=== PATIENT | male | born 1950 | race Hispanic/Latino ===

== ENCOUNTER → 2022-08-22 | Outpatient (CLI) | payer OTHER ==
[~2022-08-22] MED LIST: IOHEXOL 350 MG/ML 100ML INFUS..BTL IV ONE
== END | disposition home or self-care (01) ==
LOC: RAH 10:01
PROVIDERS: ATTEND Student in an Organized Health Care Education/Training Program
DX: K44.9 Diaphragmatic hernia without obstruction or gangrene (principal); R07.9 Chest pain, unspecified; J84.10 Pulmonary fibrosis, unspecified; M47.815 Spondylosis without myelopathy or radiculopathy, thoracolumbar region; I25.10 Atherosclerotic heart disease of native coronary artery without angina pectoris
CPT/HCPCS: 75574; Q9967

== ENCOUNTER 2022-11-12 05:56 | Day surgery (SDC) | payer OTHER ==
[2022-11-08 09:07] VITALS: BP 155/76; PULSE 74; RESP 20
[2022-11-08 09:22] LABS: BASOPHILS # (AUTO) 0.03 K/uL (0.00-0.20); BASOPHILS % (AUTO) 0.4 % (0.0-5.0); EOSINOPHILS # (AUTO) 0.21 K/uL (0.00-0.70); HEMATOCRIT 36.3 % (42-54); IMMATURE GRANULOCYTE ABSOLUTE 0.02 K/uL (0-1); LYMPHOCYTES # (AUTO) 2.6 K/uL (1.0-4.8); LYMPHOCYTES % (AUTO) 37.1 % (21.0-51.0); MEAN CORPUSCULAR HEMOGLOBIN 28.6 pg (27.0-33.0); MEAN CORPUSCULAR HGB CONC 32.5 g/dL (32.0-36.0); MEAN CORPUSCULAR VOLUME 88.1 fL (79-99); MONOCYTES # (AUTO) 0.8 K/uL (0.1-1.0); NEUTROPHILS # (AUTO) 3.4 K/uL (1.8-7.7); NEUTROPHILS % (AUTO) 48.2 % (40.0-77.0); PLATELET COUNT (AUTO) 215 K/uL (130-400); RED BLOOD CELL COUNT(AUTO) 4.12 MIL/uL (4.50-6.20); RED CELL DISTRIBUTION WIDTH 13.2 % (11.0-15.5)
[2022-11-08 09:29] LABS: APPEARANCE,URINE CLEAR (CLEAR); BILIRUBIN,URINE NEGATIVE (NEGATIVE); COLOR,URINE LIGHT-YELLOW (YELLOW); GLUCOSE, URINE (UA) 150 mg/dL (NEGATIVE); KETONES,URINE NEGATIVE (NEGATIVE); LEUKOCYTE ESTERASE ,URINE NEGATIVE Leu/uL (NEGATIVE); NITRATE,URINE NEGATIVE (NEGATIVE); OCCULT BLOOD,URINE SMALL (NEGATIVE); PROTEIN,URINE 600 mg/dL (NEGATIVE); UROBILINOGEN,URINE 0.2 mg/dL (0.2-1.0)
[2022-11-08 09:32] LABS: POTASSIUM 4.3 mmol/L (3.5-5.1)
[2022-11-08 09:40] LABS: CREATININE 14.3 mg/dL (0.5-1.5)
[2022-11-08 09:42] LABS: ADD UA MICROSCOPIC YES; INR 0.93 (0.85-1.15); PROTHROMBIN TIME 10.5 SEC (9.6-11.6)
[2022-11-08 09:43] LABS: PARTIAL THROMBOPLASTIN TIME 30.6 SEC (26.3-35.5)
[2022-11-08 09:44] LABS: B-TYPE NATRIURETIC PEPTIDE 590 pg/mL (0-100)
[2022-11-08 09:46] LABS: MUCUS,URINE RARE LPF (None Seen); SQUAMOUS EPITHELIAL CELL,UR RARE /HPF (0-2); WBC,URINE 0-1 /HPF (0-1)
[~2022-11-12] VITALS: Ht 160 cm; Wt 75.9 kg
[2022-11-12] VITALS (11 sets, daily range): BP systolic 122–148; BP diastolic 55–73; PULSE 54–72; RESP 11–15
[~2022-11-12 05:56] MED LIST changes: +ATOR10 PO; +BENZ-226 PO; +CALC0.253 PO; +CARV25TA PO; +CHOL100046 PO; +CINA30 PO; +FURO80TA3 PO; +INSLAN SQ; -IOHEXOL 350 MG/ML 100ML INFUS..BTL IV ONE; +LINA145C PO; +LOSA25TA41 PO; +NIFE-39 PO
[2022-11-12] MEDS ORDERED: IOPAMIDOL-370 100 ML VIAL IV ONE (05:57)
[2022-11-12] MEDS ORDERED: DEXTROSE 50%-WATER 50 ML DISP.SYRIN IV ONE (06:20)
[2022-11-12] MEDS ORDERED: 0.9%NACL 1000ML 1,000 ML IV ONE (06:20)
[2022-11-12] MEDS ORDERED: NITROGLYCERIN 50MG VIAL ONE (07:09)
[2022-11-12] MEDS ORDERED: LIDOCAINE HCL 400MG/20ML VIAL ONE (07:09)
[2022-11-12] MEDS ORDERED: VERAPAMIL HCL 2.5 MG/ML VIAL ONE (07:09)
[2022-11-12] MEDS ORDERED: HEPARIN 10,000 UNIT/10ML (1,000 UNIT/ML) VIAL ONE (07:09)
[2022-11-12] MEDS ORDERED: MIDAZOLAM HCL 1 MG/ML 2ML VIAL ONE (07:34)
[2022-11-12] MEDS ORDERED: FENTANYL CITRATE PF 50 MCG/1 ML 2ML VIAL ONE (07:34)
[2022-11-12] MEDS ORDERED: DEXTROSE 50%-WATER 50 ML DISP.SYRIN IV PRN (09:00)
[2022-11-12] MEDS ORDERED: GLUCAGON 1MG KIT 1 MG ML IM PRN (09:00)
[2022-11-12] MEDS ORDERED: CLOPIDOGREL 300MG TAB ONE (15:02)
[2022-11-12] MEDS ORDERED: ASPIRIN 81MG CHEW TAB ONE (15:03)
== END 2022-11-12 15:15 | disposition home or self-care (01) ==
LOC: DAH 05:56
PROVIDERS: ATTEND Student in an Organized Health Care Education/Training Program
DX: I25.112 Atherosclerotic heart disease of native coronary artery with refractory angina pectoris (principal); E11.22 Type 2 diabetes mellitus with diabetic chronic kidney disease; I12.0 Hypertensive chronic kidney disease with stage 5 chronic kidney disease or end stage renal disease; N18.6 End stage renal disease; E78.5 Hyperlipidemia, unspecified; Z99.2 Dependence on renal dialysis; Z79.01 Long term (current) use of anticoagulants; Z79.899 Other long term (current) drug therapy
CPT/HCPCS: 80048; 83880; 85025; 85610; 85730; 81001; 36415; 71045; 93005; 93458; 82948 ×3; C1769 ×2; C1894 ×3; C1760; Q9967; J3010; J3490 ×3; J7030; J7070; J1644 ×2; J2250; A4215; A4222; A4221; A4663; A4216; A4606; A4223 ×3; 99156; 99157

== ENCOUNTER 2024-01-02 11:45 | Emergency (ER) | payer OTHER, MEDICARE ==
[~2024-01-02] VITALS: Ht 160 cm; Wt 72.6 kg
[~2024-01-02 11:45] MED LIST changes: +AEC81 PO; -ATOR10 PO; -BENZ-226 PO; -CALC0.253 PO; -CARV25TA PO; -CINA30 PO; -FURO80TA3 PO; -INSLAN SQ; -LINA145C PO; -LOSA25TA41 PO; -NIFE-39 PO
[2024-01-02 12:30] LABS: BASOPHILS # (AUTO) 0.02 K/uL (0.00-0.20); BASOPHILS % (AUTO) 0.2 % (0.0-5.0); EOSINOPHILS # (AUTO) 0.13 K/uL (0.00-0.70); EOSINOPHILS % (AUTO) 1.3 % (0.0-8.0); IMMATURE GRANULOCYTE ABSOLUTE 0.09 K/uL (0-1); LYMPHOCYTES # (AUTO) 0.9 K/uL (1.0-4.8); LYMPHOCYTES % (AUTO) 9.4 % (21.0-51.0); MEAN CORPUSCULAR HEMOGLOBIN 29.5 pg (27.0-33.0); MEAN CORPUSCULAR HGB CONC 32.3 g/dL (32.0-36.0); MEAN CORPUSCULAR VOLUME 91.2 fL (79-99); MONOCYTES # (AUTO) 0.7 K/uL (0.1-1.0); MONOCYTES % (AUTO) 7.2 % (3.0-13.0); PLATELET COUNT (AUTO) 387 K/uL (130-400); RED BLOOD CELL COUNT(AUTO) 2.85 MIL/uL (4.50-6.20); RED CELL DISTRIBUTION WIDTH 13.2 % (11.0-15.5); WHITE BLOOD COUNT (AUTO) 9.8 K/uL (4.8-10.8)
[2024-01-02 13:11] LABS: POTASSIUM 4.1 mmol/L (3.5-5.1)
[2024-01-02 13:14] LABS: CREATININE 11.5 mg/dL (0.5-1.3)
[2024-01-02] MEDS ORDERED: GABA-529 PO (15:45)
[2024-01-02 15:54] VITALS: BP 162/96; PULSE 99; RESP 18; TEMP 98.6; O2SAT 98
== END 2024-01-02 15:58 | disposition home or self-care (01) ==
LOC: EDH 11:45
DX: L76.34 Postprocedural seroma of skin and subcutaneous tissue following other procedure (principal); E11.9 Type 2 diabetes mellitus without complications; E78.00 Pure hypercholesterolemia, unspecified; I10 Essential (primary) hypertension; Z79.82 Long term (current) use of aspirin; Z95.1 Presence of aortocoronary bypass graft
CPT/HCPCS: 36415; 71045; 76604; 80048; 85025; 93005

== ENCOUNTER 2024-03-26 10:16 | Emergency (ER) | payer OTHER, MEDICARE ==
[~2024-03-26] VITALS: Ht 160 cm; Wt 60.8 kg
[~2024-03-26 10:16] MED LIST changes: -AEC81 PO; +ASPI-1443 PO; +ATOR40TA69 PO; +BENZ150C8 PO; -CHOL100046 PO; +CINA30TA5 PO; +CLOP-31 PO; +GABA100C PO; +HYDR-3830 PO; +INSU3INS3 SQ; +LINA145C PO; +MIDO10TA3 PO; +SEVE800T7 PO
--- NOTE | 2024-03-26 10:39 | ERN ---
General Chief Complaint: Altered Mental Status Stated Complaint: AMS Time Seen by MD: 10:18 History of Present Illness Initial Comments 73-year-old male came in by EMS from [facility] for altered mentation. According to the daughter the patient normally is much more verbal. This morning she found him and he is less verbal and he appears confused and lethargic than usual. He is currently being treated with a PICC line for a sternal infection after it CABG. He was a diabetic, hypertensive. End-stage renal disease on peritoneal dialysis daily. He has no obvious cranial nerve deficits, he is moving both arms and legs. Takes a daily aspirin. Family denies fevers, vomiting, diarrhea. Allergies: Coded Allergies: acetaminophen (Unverified Allergy, Unknown, 11/08/22) Home Meds Reported Medications Insulin Glargine,Hum.rec.anlog (Lantus Solostar) 100 Unit/Ml (3 Ml) Insuln.pen, 30 UNIT SQ DAILY for 30 Days, #15 ML 0 Refills 03/16/24 Hydroxyzine HCl (Hydroxyzine HCl) 10 Mg Tablet, 10 MG PO AD, TAB 03/16/24 Benzonatate (Benzonatate) 150 Mg Capsule, 1 CAP PO BID for 10 Days, #30 CAP 0 Refills 03/16/24 Midodrine HCl (Midodrine HCl) 10 Mg Tablet, 1 TAB PO TID for 30 Days, #90 TAB 0 Refills 24 Atorvastatin Calcium (LIPITOR) 40 Mg Tablet, 1 TAB PO DAILY for 30 Days, #30 TAB 0 Refills 24 Gabapentin (Neurontin) 100 Mg Capsule, 1 CAP PO TID for 30 Days, #90 CAP 0 Refills 24 Clopidogrel Bisulfate (Plavix) 75 Mg Tablet, 1 TAB PO DAILY for 30 Days, #30 TAB 0 Refills 24 Cinacalcet HCl (Cinacalcet HCl) 30 Mg Tablet, 30 MG PO DAILY, TAB 24 Linaclotide (Linzess) 145 Mcg Capsule, 72 MG PO DAILY for 30 Days, #30 CAP 0 Refills 03/16/24 Aspirin (Aspirin EC) 81 Mg Tablet.dr, 1 TAB PO DAILY for 30 Days, #30 TAB 0 Refills 24 Sevelamer Carbonate (Renvela) 800 Mg Tablet, 800 MG PO TID, TAB 03/16/24 Past Medical History Past Medical History: Anemia, CAD, Diabetes-Type II, High Cholesterol, Hypertension, Other Medical History Other: ESRD Past Surgical History: CABG, Other Surgical History Other: PERITONEAL DIALYSIS CATHETER, HERNIA ROS Dictation Unable to obtain due to the patient's altered mentation. Physical Exam Physical Exam Dictation VITAL SIGNS: Reviewed. GENERAL APPEARANCE: Alert but less oriented and lethargic, no acute distress HEAD AND FACE: Non-traumatic. EYES: PERRL, pink conjunctivas, eyelid no trauma, anterior chamber clear. EARS: Pinnas intact and no signs of trauma or erythema. Ear canals clear and no discharge. TMs no erythema. NOSE: No discharge, no bleeding. OROPHARYNX: Mouth normal, teeth no caries, tongue pink. Pharynx clear, no erythema. Tonsils no exudates, no abscesses noted. Mucous membrane moist. NECK: Supple, non-tender, no thyromegaly, no masses, no JVD, no bruits. BREAST: Deferred. CHEST: Midline CABG scar with the wound covering. No signs of infection or purulence. LUNGS: Clear, well-ventilated, symmetric, no rales, no wheezing, no rhonchi, no stridor, good breath sounds bilaterally. HEART: Regular rate, regular rhythm, no murmur, no gallops. VASCULAR: No peripheral edema. ABDOMEN: Soft, positive bowel sounds, nondistended, no guarding, nontender, no rebound, no masses no hepatomegaly, no splenomegaly, no Castro's sign, no hernias. Peritoneal dialysis in place. RECTAL: Deferred. GENITAL: Deferred. NEUROLOGICAL: Not speaking but following simple commands, cranial nerves appear intact. Moving both limbs. MUSCULOSKELETAL: Neck nontender, full range of motion, back nontender, full range of motion. EXTREMITIES: Nontender, full range of motion. SKIN: Color pink, dry, no turgor, no rash, no lacerations, no abrasions, no contusions. LYMPHATICS: Deferred. Results Laboratory and Microbiology Lab and Micro Result Laboratory Tests Test 03/26/24 10:40 White Blood Count 9.8 K/uL (4.8-10.8) Red Blood Count 3.06 MIL/uL (4.50-6.20) L Hemoglobin 9.2 g/dL (14.0-18.0) L Hematocrit 29.3 % (42-54) L Mean Corpuscular Volume 95.8 fL (79-99) Mean Corpuscular Hemoglobin 30.1 pg (27.0-33.0) Mean Corpuscular Hemoglobin Concent 31.4 g/dL (32.0-36.0) L Red Cell Distribution Width 14.8 % (11.0-15.5) Platelet Count 331 K/uL (130-400) Mean Platelet Volume 10.5 fL (7.5-10.5) Immature Granulocyte % (Auto) 1.2 % (0-1) H Neutrophils (%) (Auto) 63.9 % (40.0-77.0) Lymphocytes (%) (Auto) 23.7 % (21.0-51.0) Monocytes (%) (Auto) 10.0 % (3.0-13.0) Eosinophils (%) (Auto) 1.0 % (0.0-8.0) Basophils (%) (Auto) 0.2 % (0.0-5.0) Neutrophils # (Auto) 6.3 K/uL (1.8-7.7) Lymphocytes # (Auto) 2.3 K/uL (1.0-4.8) Monocytes # (Auto) 1.0 K/uL (0.1-1.0) Eosinophils # (Auto) 0.10 K/uL (0.00-0.70) Basophils # (Auto) 0.02 K/uL (0.00-0.20) Absolute Immature Granulocyte (auto 0.12 K/uL (0-1) Nucleated Red Blood Cells 0.2 % (0.0-0.19) H Sodium Level 143 mmol/L (136-145) Potassium Level 3.7 mmol/L (3.5-5.1) Chloride Level 100 mmol/L (101-111) L Carbon Dioxide Level 32 mmol/L (21-32) Blood Urea Nitrogen 32 mg/dL (7-18) H Creatinine 8.1 mg/dL (0.5-1.3) *H Glomerular Filtration Rate Calc 7 mL/min (>90) Random Glucose 119 mg/dL (70-105) H Lactic Acid Level 1.9 mmol/L (0.8-2.5) Total Calcium 9.4 mg/dL (8.5-10.1) Magnesium Level 1.90 mg/dL (1.80-2.40) Total Bilirubin 0.4 mg/dL (0.2-1.0) Direct Bilirubin 0.1 mg/dL (0.0-0.3) Aspartate Amino Transf (AST/SGOT) 17 U/L (10-37) Alanine Aminotransferase (ALT/SGPT) 5 U/L (12-78) L Alkaline Phosphatase 126 U/L (50-136) Ammonia 15 umol/L (11-32) Total Creatine Kinase 42 U/L (21-232) Troponin I High Sensitivity 373.8 ng/L (4-75) *H C-Reactive Protein, Quantitative 56.50 mg/L (0.5-3.0) H B-Type Natriuretic Peptide 516 pg/mL (0-100) H Total Protein 7.1 g/dL (6.0-8.3) Albumin 2.4 g/dL (3.5-5.0) L MDM CC: Altered mentation Historian: Family due to patient's altered mentation Vital signs: Stable, remained stable in the ER. Labs show no leukocytosis no shift and no bands. Normocytic anemia hemoglobin 9.2 baseline for patient. Chemistry panel shows creatinine of 8.1 BUN of 32, baseline for patient, he does have CKD and requires dialysis. Does have an elevated troponin 373. Elevated CRP 56. BNP is mildly elevated. I suspect that the troponin is baseline for patient due to the CKD. CXR per my independent interpretation shows a small left pleural effusion unchanged. CT head without contrast unremarkable. Per my independent interpretation. While the patient was here in the ER, another family member came and reports that she was very familiar with the patient and he was at his baseline mentation currently. He is already receiving IV antibiotics at [facility] [place], I do not see any indication for an acute hospitalization at this time. We will DC back to [facility]. REASON: CP ORDERING PHYSICIAN: HILDA YOUNG DO PROCEDURE: CXR1VW - CHEST 1VW CHEST 1VW REASON: CP COMPARISON: 03/17/2024 FINDINGS: There are mild perihilar infiltrates which could be pneumonia or edema, more prominent on the right. Heart size is normal. More peripheral portions of the lungs are clear. There is a small left pleural effusion unchanged since prior exam. IMPRESSION: 1. Small left pleural effusion unchanged. 2. Perihilar infiltrates which could be pneumonia or edema. REASON: altered mentation ORDERING PHYSICIAN: HILDA YOUNG DO PROCEDURE: HEAD WO - CT HEAD/BRAIN W/O CONTRAST Exam: NONCONTRAST CT BRAIN REASON: altered mentation. COMPARISON: 01/12/2024 TECHNIQUE: Images are obtained from vertex to the skull base. The exam was performed without IV contrast. FINDINGS: There are generous ventricles and sulci. There is decreased attenuation in the deep central white matter. These findings are consistent with atrophy. There are no acute appearing focal parenchymal lesions. There is no evidence of mass, intracranial hemorrhage or acute stroke. Posterior fossa and brainstem structures appear unremarkable. There are no abnormal fluid collections. Extra cranial soft tissues appear unremarkable as well. IMPRESSION: 1. Atrophy, no acute finding. ED Course Orders Procedure Category Date Status Time Cbc With Differential LAB 03/26/24 Complete 10:18 Blood Cult MONICA 03/26/24 In Process 10:18 Ammonia LAB 03/26/24 Complete 10:26 Cardiac Panel LAB 03/26/24 Complete 10:26 Basic Metabolic Panel LAB 03/26/24 Complete 10:26 B-Type Natriuretic LAB 03/26/24 Complete Peptide 10:26 Magnesium LAB 03/26/24 Complete 10:26 Crp Quantitative LAB 03/26/24 Complete 10:26 Lactic Acid LAB 03/26/24 Complete 10:26 Hepatic Function Panel LAB 03/26/24 Complete 10:26 Chest 1vw RAD 03/26/24 Resulted 10:26 12 Lead Ekg Tracing- EKG 03/26/24 Complete Technical 10:26 Ct Head/Brain W/O CT 03/26/24 Resulted Contrast 10:26 Vital Signs Date Time Temp Pulse Resp B/P (MAP) Pulse Ox O2 Delivery O2 Flow Rate FiO2 03/26/24 10:45 97.5 99 17 101/61 100 Room Air* 0 21 03/26/24 10:18 98.4 102 16 189/130 97 Room Air DX & DISP Disposition: Discharge Departure Impression: Primary Impression: Altered mental state Additional Impressions: Anemia, ESRD on dialysis Condition: Stable Additional Instructions: There are no dangerous findings on your workup here today. The CT scan of the brain shows no acute abnormalities. The lab work shows baseline labs. There are no new major changes. Be sure to continue with dialysis. Be sure to continue with the IV antibiotics. Please follow up with your primary doctor. Return to the emergency department as needed. Referrals: BOBBI CROCKETT MD (PCP) HILDA YOUNG DO Mar 26, 2024 10:39
--- NOTE | 2024-03-26 10:49 | NUR ---
PERITONEAL DIALYSIS. PATIENT OF DR TENORIO. PATIENT IS ANURIC PER SPOUSE AT BEDSIDE.
[2024-03-26 11:08] LABS: BASOPHILS # (AUTO) 0.02 K/uL (0.00-0.20); BASOPHILS % (AUTO) 0.2 % (0.0-5.0); HEMATOCRIT 29.3 % (42-54); IMMATURE GRANULOCYTE ABSOLUTE 0.12 K/uL (0-1); LYMPHOCYTES # (AUTO) 2.3 K/uL (1.0-4.8); LYMPHOCYTES % (AUTO) 23.7 % (21.0-51.0); MEAN CORPUSCULAR HEMOGLOBIN 30.1 pg (27.0-33.0); MEAN CORPUSCULAR HGB CONC 31.4 g/dL (32.0-36.0); MEAN CORPUSCULAR VOLUME 95.8 fL (79-99); NEUTROPHILS # (AUTO) 6.3 K/uL (1.8-7.7); NEUTROPHILS % (AUTO) 63.9 % (40.0-77.0); NUCLEATED RED BLOOD CELLS 0.2 % (0.0-0.19); PLATELET COUNT (AUTO) 331 K/uL (130-400); RED BLOOD CELL COUNT(AUTO) 3.06 MIL/uL (4.50-6.20); RED CELL DISTRIBUTION WIDTH 14.8 % (11.0-15.5); WHITE BLOOD COUNT (AUTO) 9.8 K/uL (4.8-10.8)
--- NOTE | 2024-03-26 11:18 | NUR ---
PER SPOUSE AT BEDSIDE, THE ONLY NEW NEUROLOGICAL SYMPTOM IS THE PATIENT'S INABILITY TO RESPOND VERBALLY. SPOUSE STATES THE PATIENT HAS BEEN IN A "SLEEPY," STATES SINCE 03/18/2024. SPOUSE STATES THE PATIENT WENT TO SLEEP YESTERDAY AROUND 0200 0300 AND WAS REPONDING VERBALLY. AWOKE AROUND 0600 AND NO LONGER RESPONDED VERBALLY. NOTE PATIENT RESPONDS TO VOICE AND TRACKS WITH EYES. MOVES HEAD AND EYES TO VOICE.
[2024-03-26 11:26] LABS: ALBUMIN 2.4 g/dL (3.5-5.0); BILIRUBIN,DIRECT 0.1 mg/dL (0.0-0.3); BILIRUBIN,TOTAL 0.4 mg/dL (0.2-1.0); MAGNESIUM 1.9 mg/dL (1.80-2.40); POTASSIUM 3.7 mmol/L (3.5-5.1); TOTAL PROTEIN, SERUM 7.1 g/dL (6.0-8.3)
--- NOTE | 2024-03-26 11:27 | EKG ---
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
[2024-03-26 11:29] LABS: CREATININE 8.1 mg/dL (0.5-1.3)
--- NOTE | 2024-03-26 12:19 | HMCIMG ---
CHEST 1VW REASON: CP COMPARISON: 03/17/2024 FINDINGS: There are mild perihilar infiltrates which could be pneumonia or edema, more prominent on the right. Heart size is normal. More peripheral portions of the lungs are clear. There is a small left pleural effusion unchanged since prior exam. IMPRESSION: 1. Small left pleural effusion unchanged. 2. Perihilar infiltrates which could be pneumonia or edema.
--- NOTE | 2024-03-26 12:22 | HMCIMG ---
Exam: NONCONTRAST CT BRAIN REASON: altered mentation. COMPARISON: 01/12/2024 TECHNIQUE: Images are obtained from vertex to the skull base. The exam was performed without IV contrast. FINDINGS: There are generous ventricles and sulci. There is decreased attenuation in the deep central white matter. These findings are consistent with atrophy. There are no acute appearing focal parenchymal lesions. There is no evidence of mass, intracranial hemorrhage or acute stroke. Posterior fossa and brainstem structures appear unremarkable. There are no abnormal fluid collections. Extra cranial soft tissues appear unremarkable as well. IMPRESSION: 1. Atrophy, no acute finding. CT was performed with one or more following dose reduction techniques: automated exposure control, adjustment of the mA and kv according to patient's size, or use of a iterative reconstruction technique.
--- NOTE | 2024-03-26 12:43 | NUR ---
PER DAUGHTER OF PATIENT AT BEDSIDE, THE PATIENT HAS BEEN IN THIS CURRENT STATE FOR THE LAST 3-4 DAYS WITH STUPOR AND INABILITY TO "THROW AT WORDS," PER DAUGHTER. DAUGHTER STATES SHE SEES THE PATIENT AT BASELINE WITH SOME IMPROVEMENT. VERBALIZES PATIENT WAS OFFERED TO GO HOME ON HOSPICE CARE.
--- NOTE | 2024-03-26 13:09 | NUR ---
EMS NOTIFIED OF TRANSPORT TO [facility]
--- NOTE | 2024-03-26 13:19 | NUR ---
PATIENT REPORT GIVEN TO CARLOS DOHERTY WITH [facility]
[2024-03-26 14:00] VITALS: BP 100/57; PULSE 99; RESP 17; TEMP 97.5; O2SAT 99
== END 2024-03-26 14:01 | disposition short-term general hospital (02) ==
LOC: EDH 10:16
DX: R41.82 Altered mental status, unspecified (principal); I12.0 Hypertensive chronic kidney disease with stage 5 chronic kidney disease or end stage renal disease; E11.22 Type 2 diabetes mellitus with diabetic chronic kidney disease; N18.6 End stage renal disease; D63.1 Anemia in chronic kidney disease; E78.00 Pure hypercholesterolemia, unspecified; I25.10 Atherosclerotic heart disease of native coronary artery without angina pectoris; Z79.02 Long term (current) use of antithrombotics/antiplatelets; Z79.4 Long term (current) use of insulin; Z79.82 Long term (current) use of aspirin; Z79.899 Other long term (current) drug therapy; Z95.1 Presence of aortocoronary bypass graft; Z99.2 Dependence on renal dialysis
CPT/HCPCS: 36415; 70450; 71045; 80048; 80076; 82140; 82550; 83605; 83735; 83880; 84484; 85025; 86140; 87040; 93005; 99285

== ENCOUNTER 2024-05-29 05:54 | Inpatient (IN) | payer OTHER, MEDICARE ==
[~2024-05-29] VITALS: Ht 172.7 cm; Wt 65.8 kg
[2024-05-29 10:45] VITALS: BP 108/65; PULSE 97; RESP 18; TEMP 98.4
[2024-05-29 11:00] VITALS: O2SAT 98
[2024-05-29] MEDS ORDERED: FOLI1TAB85 PO (12:54)
[2024-05-29] MEDS ORDERED: BENZ200C53 PO (12:54)
[2024-05-29] MEDS ORDERED: TAMS-1 PO (12:54)
[2024-05-29] MEDS ORDERED: INSU3INS3 SQ ×2 (12:54)
[2024-05-29] MEDS ORDERED: SENN8.6T20 PO (12:54)
[2024-05-29] MEDS ORDERED: DUTA0.5C37 PO (12:54)
[2024-05-29] MEDS ORDERED: FLUD0.1T2 PO (12:54)
[2024-05-29] MEDS ORDERED: PANT20TA18 PO (12:54)
[2024-05-29] MEDS ORDERED: MIDO10TA3 PO (12:54)
[2024-05-29] MEDS ORDERED: BENZONATATE 100 MG PO SCH (14:00)
[2024-05-29] MEDS ORDERED: PHARMACY COMMUNICATION MISC SCH (14:00)
[2024-05-29] MEDS: miDODRine HCL 5 MG TABLET PO SCH (14:30)
[2024-05-29] MEDS ORDERED: VANCOMYCIN PROTOCOL PER PHARMACY IV SCH (14:30)
[2024-05-29] MEDS: ceFEPime HCL 1 GM VIAL IVPB SCH (14:38)
[2024-05-29] MEDS: GABApentin 100 MG CAPSULE PO SCH (14:38)
[2024-05-29] MEDS: HEParin 5,000 UNIT VIAL SQ SCH (14:41)
[2024-05-29] MEDS: VANCOMYCIN 1.75 GM/250 ML BAG 250 ML IV ONE (14:41)
[2024-05-29 15:39] LABS: HEMATOCRIT 30.3 % (42-54); MEAN CORPUSCULAR HEMOGLOBIN 28.8 pg (27.0-33.0); MEAN CORPUSCULAR HGB CONC 30.4 g/dL (32.0-36.0); MEAN CORPUSCULAR VOLUME 94.7 fL (79-99); PLATELET COUNT (AUTO) 318 K/uL (130-400); RED CELL DISTRIBUTION WIDTH 13.9 % (11.0-15.5); WHITE BLOOD COUNT (AUTO) 10.6 K/uL (4.8-10.8)
--- NOTE | 2024-05-29 15:45 | HMCIMG ---
PORTABLE CHEST RADIOGRAPH INDICATION: chf COMPARISON: 03/17/2024 CT chest FINDINGS: satellite project site monitor leads overlie the field of view. Heart size is normal. Mild calcific plaque is present along the aortic arch mtz. The pulmonary vascularity and anisha appear normal. Left lung base opacities and left costophrenic angle is slightly blunted, without consolidation. No pneumothorax detected. IMPRESSION: Left lung base atelectasis and trace left pleural fluid favored over evolving pneumonia comment but no evidence for pulmonary vascular congestion. Follow-up chest radiograph is advised in order to ensure resolution.
[2024-05-29 16:11] LABS: CREATININE 5.8 mg/dL (0.5-1.3); POTASSIUM 3.4 mmol/L (3.5-5.1)
[2024-05-29 16:25] VITALS: BP 122/77; PULSE 90; RESP 17; TEMP 97.9
--- NOTE | 2024-05-29 16:46 | HP ---
[facility] HISTORY & PHYSICAL Date Patient Seen: May 29, 2024 Time of Visit: 16:46 Supervising Physician: Dr. Khan Primary Care Physician: Dr. Wright Outpatient Specialists: [ ] Inpatient Consults: [facility], Nephrology, ID PROBLEM LIST: Metabolic encephalopathy POA Infected sternotomy wound/chest wall cellulitis POA Sternal seroma Coronary artery disease s/p CABG on 03/2023 Hypertension Diabetes mellitus with hyperglycemia and nephropathy End Stage Renal Disease on peritoneal dialysis Left lower lobe bacterial pneumonia Functional quadriplegic Anemia 2/2 chronic kidney disease Recurrent hospitalization due to multiple complications after surgical procedure Allergy to penicillin tolerating cefepime HPI: This is a 73-year-old male patient who has past medical history significant for ESRD on Peritoneal Dialysis, coronary artery disease, HTN and diabetes mellitus, CAD s/p CABG on 03/2023. Unfortunately, this patient has had multiple occasions of infected sternotomy wound. And this occasion, the patient presented to [facility] due to noticeable erythema of the sternotomy wound. The patient also presented with confusion raising concern for a septic process. Based on the previous hospital documentation, the patient also reported at that time regarding night sweats, fever and chills. Of note, the patient discharged from this institution on March 23 2024 and was transferred to [facility] where he would complete extensive antibiotic course. Per the patient report, he completed antibiotic therapy as recommended but unfortunately, the infection recurred requiring him to present to the emergency department for further evaluation and management of his condition. Because of high risk for complication, the patient was referred here to undergo further follow up with CTVS Dr. Mitchell. At the time of my visit, the patient was in his assigned room. He was breathing on room air and out the monitor he was hemodynamically stable and afebrile. Laboratory data obtained did not show any WBC count elevation, H&H sustained that 9.2/30.2 and platelet count of 318. Chemistry panel obtained was notable for a potassium of 3.4, BUN of 46, creatinine of 5.8 and a GFR of 10. Is a C-reactive protein of 56.80. Imaging of the chest showed a concern for a left small pleural effusion vs left basilar pneumonic infi ltrate. The staff nurse reports no acute events since admission. No other complaint. PAST MEDICAL HX: see above PAST SURGICAL HX: noncontributory SOCIAL HISTORY: No tobacco, ETOH, or illicit drug use Coded Allergies: acetaminophen (Unverified Allergy, Unknown, 11/08/22) REVIEW OF SYSTEMS: 12 point ROS reviewed with patient. Pertinent positives mentioned above. Otherwise negative. PHYSICAL EXAM: GENERAL: Alert, weak, awake oriented x 3 HEENT: EOMI, Sclera non icteric, moist mucosa NECK: Supple, no JVD, trachea midline LUNGS: Clear breath sounds bilaterally. No wheezes HEART: Regular rate and rhythm. Normal S1 and S2, without murmurs ABD: Abdomen soft, nontender. Bowel sounds present EXT: No clubbing cyanosis or edema Skin: Sternotomy site erythema. NEURO: Alert and oriented to person, follows commands Vital Signs (last 8hr) Date Time Temp Pulse Resp B/P (MAP) Pulse Ox O2 Delivery O2 Flow Rate FiO2 05/29/24 16:25 97.9 90 17 122/77 100 Room Air 05/29/24 11:00 98 Room Air* 0 21 05/29/24 10:45 98.4 97 18 108/65 98 Room Air LABS: Hematology Labs: Test 05/29/24 15:19 Range/Units White Blood Count 10.6 4.8-10.8 K/uL Red Blood Count 3.20 L 4.50-6.20 MIL/uL Hemoglobin 9.2 L 14.0-18.0 g/dL Hematocrit 30.3 L 42-54 % Mean Corpuscular Volume 94.7 79-99 fL Mean Corpuscular Hemoglobin 28.8 27.0-33.0 pg Mean Corpuscular Hemoglobin Concent 30.4 L 32.0-36.0 g/dL Red Cell Distribution Width 13.9 11.0-15.5 % Platelet Count 318 130-400 K/uL Mean Platelet Volume 9.2 7.5-10.5 fL Nucleated Red Blood Cells 0.0 0.0-0.19 % Chemistry Labs: Test 05/29/24 15:19 05/29/24 11:17 Range/Units Sodium Level 137 136-145 mmol/L Potassium Level 3.4 L 3.5-5.1 mmol/L Chloride Level 96 L 101-111 mmol/L Carbon Dioxide Level 31 21-32 mmol/L Blood Urea Nitrogen 46 H 7-18 mg/dL Creatinine 5.8 H 0.5-1.3 mg/dL Glomerular Filtration Rate Calc 10 >90 mL/min Random Glucose 157 H 70-105 mg/dL Total Calcium 9.0 8.5-10.1 mg/dL C-Reactive Protein, Quantitative 56.80 H 0.5-3.0 mg/L Whole Blood Glucose 216 H 70-110 MG/DL DIAGNOSTICS / RADIOLOGY RESULTS: [ ] PLAN The patient was admitted to PCCU. We will consult CTVS Dr. Mitchell as well as Infectious Disease specialist Dr. Mccoy. In the meantime, we are going to continue antibiotic therapy with vancomycin and cefepime. The sternotomy site has no open area to require wound care. Because of his renal disease, we will consult the char filter operator to guide his peritoneal dialysis. We will review and reconcile medication list for this patient once they become available. I am going to review and reconcile medication list once this becomes available. We will continue provide general supportive care, GI and DVT prophylaxis. Further orders per attending MD and hospital course. NEURO: Minimize central acting medications as possible. Maintain fall precautions, adequate lighting during the day PULMONARY: Supplemental 02 as needed. Maintain aspiration precautions at all times CARDIOVASCULAR: Follow hemodynamics. Vital signs per facility protocol GI & NUTRITION: Continue with nutritional support. Continue stool softeners and laxatives as needed. KIDNEYS & ELECTROLYTES: Strict monitoring of intake, output and overall fluid balance. Avoid nephrotoxic medications to the extent possible. Medications to be dosed according to renal function. Monitor electrolytes and replace as needed ENDOCRINE: Maintain blood glucose between 100-180 at all times. Hypoglycemia protocol in place INFECTIOUS DISEASE: Trend temperature, WBC and procalcitonin level Follow cultures, deescalate antibiotics as soon as possible. Panculture if new onset fever ONCOLOGY/HEMATOLOGY/COAGULATION: Monitor for s/s of bleeding Monitor hemoglobin, coagulation studies as needed SKIN: Pressure ulcer prevention per facility protocol Specialty mattress ORTHO/REHAB: Continue PT/OT Prophylaxis: Continue GI and DVT prophylaxis Code Status: Full Resuscitation Disposition: TBD Other: Total patient care time exceeds 35 minutes excluding all procedures. NITIN INGRAM NP May 29, 2024 16:46
[2024-05-29] MEDS: sevELAMer HCL 800 MG TABLET PO SCH (17:00)
[2024-05-29 17:53] LABS: EOSINOPHILS % (MANUAL) 2 % (1-6); LYMPHOCYTES % (MANUAL) 11 % (22-44); MAN.DIFF COMMENT-IMPRESSION MANUAL DIFFERENTIAL; MONOCYTES % (MANUAL) 7 % (2-9); PLATELET MORPHOLOGY COMMENT ADEQUATE; SEGMENTED NEUTROPHILS % 80 % (40-70); TOTAL CELLS COUNTED 100
[2024-05-29 19:00] VITALS: BP 127/74; PULSE 95; RESP 18; TEMP 98
[2024-05-29] MEDS: INSULIN GLARgine 100 UNITS/ML 10 ML VIAL SQ SCH (19:55)
[2024-05-29 20:00] VITALS: O2SAT 98
[2024-05-29] MEDS ORDERED: (Dutasteride 0.5 MG) PO SCH (21:00)
[2024-05-29 23:00] VITALS: BP 90/50; PULSE 94; RESP 18; TEMP 98
[2024-05-30] VITALS (9 sets, daily range): BP systolic 90–112; BP diastolic 51–65; PULSE 86–104; RESP 16–18; TEMP 98–98.3; O2SAT 98
--- NOTE | 2024-05-30 00:49 | CONS ---
NEPHROLOGY CONSULTATION REASON FOR CONSULTATION: Management of end-stage renal disease, on peritoneal dialysis. HISTORY OF PRESENT ILLNESS: The patient is a 73-year-old male with end-stage renal disease on peritoneal dialysis, diabetes mellitus type 2, hypertension with renal manifestation, coronary artery disease with CABG for the past few months. The patient is having issues with recurrent infection, the sternal surgical wound. The patient has required several admissions for recurrent infection. The patient denies fever or chills at this time. The patient was transferring from [facility]. The patient's cardiac surgery was done in this hospital. The patient offers no major complaints. In terms of peritoneal dialysis, they had not been ____ tolerating the therapy. PAST MEDICAL HISTORY: End-stage renal disease, diabetes mellitus type 2 with nephropathy, hypertension with renal manifestation, anemia and chronic kidney disease, coronary artery disease, history of CABG. FAMILY HISTORY: Diabetes mellitus, type 2. SOCIAL HISTORY: No history of alcohol abuse or smoking. REVIEW OF SYSTEMS: Positive for generalized body weakness and pain in the sternal area. He is unable to ambulate. The rest of review of system is negative. ALLERGIES: ALLERGIC TO ACETAMINOPHEN. CURRENT MEDICATIONS: Reviewed. PHYSICAL EXAMINATION: GENERAL: Reveals a pleasant male, chronically ill looking, in no major acute distress. VITAL SIGNS: Blood pressure 122/77, respirations 17, pulse 90, temperature 97.9. HEENT: Head is normocephalic. NECK: Supple. No JVD. Trachea central. LUNGS: Clear to auscultation and inspection. HEART: Normal cardiac sound. ABDOMEN: Soft, nondistended, nontender. A peritoneal dialysis catheter in place. ____. EXTREMITIES: Right lower extremity showed no edema or cyanosis. Left lower extremity, no edema or cyanosis. SKIN: No rash or ecchymosis. PSYCHIATRIC: The patient is awake, alert to time, person and place. LABORATORY DATA: WBC count is 10.6, hemoglobin 9.2. Sodium 137, potassium 3.2, BUN 46, creatinine 5.8, calcium 9.0. ASSESSMENT: * End-stage renal disease. The patient is on peritoneal dialysis. * Diabetes mellitus type 2 with nephropathy. * Hypertension with renal manifestation. * Anemia and chronic kidney disease. * Infected surgical sternal wound. PLAN: Continue renal diet. Continue peritoneal dialysis therapy. Antimicrobials. Further intervention as per other doctors in the care of this patient. TID: [id number] RECEIPT: [id number]
[2024-05-30 03:00] LABS: INR 1.08 (0.85-1.15); PROTHROMBIN TIME 11.4 SEC (9.6-11.6)
[2024-05-30 03:02] LABS: PARTIAL THROMBOPLASTIN TIME 34.5 SEC (26.3-35.5)
--- NOTE | 2024-05-30 04:00 | NUR ---
PICC > Midline PICC line attempt unsuccessful as RGVPicc ROUTING CLERK unable to advance catheter far enough for central access. Midline placed instead. Pt tolerated well. 5 fr 2 Lumen midline in L upper arm.
--- NOTE | 2024-05-30 06:10 | NUR ---
364 BS Per on-call, start pt on medium sliding scale.
[2024-05-30] MEDS: INSULIN humuLIN R 100 UNIT/ML 3ML SQ SCH (06:24)
[2024-05-30] MEDS ORDERED: FAMOTIDINE 20MG TAB PO SCH (09:00)
[2024-05-30] MEDS: atorVAStatin 40 MG TABLET PO SCH (09:24)
[2024-05-30] MEDS: ASPIRIN 81 MG EC TAB PO SCH (09:24)
[2024-05-30] MEDS: PANTOPrazole 40 MG TAB DR PO SCH (09:24)
[2024-05-30] MEDS: cloPIDOgrel 75MG TAB PO SCH (09:24)
[2024-05-30] MEDS: INSULIN GLARgine 100 UNITS/ML 10 ML VIAL SQ SCH (09:32)
[2024-05-30] MEDS: FLUDROCORTISONE ACETATE 0.1 MG TABLET PO SCH (09:33)
[2024-05-30] MEDS: tamSULOsin HCL 0.4 MG CAP.ER.24H PO SCH (09:33)
[2024-05-30] MEDS: Vitamin B Complex/Vit C/Folic Acid PO SCH (09:33)
[2024-05-30] MEDS: SENNOSIDES 8.6 MG TABLET PO SCH (09:33)
--- NOTE | 2024-05-30 13:40 | NUR ---
DR. TOBIN HERE AND WAS ABLE TO PUSH ON THE INCISIONAL SITE AND DRAINED SOME PURULENT DRAINAGE. AREA WAS CLEANED AND DRESSING WAS APPLIED.
--- NOTE | 2024-05-30 15:16 | PN ---
[facility] PROGRESS NOTE Date Patient Seen: May 30, 2024 Time of Visit: 15:15 Supervising Physician: Dr. Angeles Primary Care Physician: Dr. 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 He is awake, alert and with appropriate verbal responses. His main complaint is midsternal pain. Patient is breathing on room air with optimal oxygen saturation. He is hemodynamically stable. Laboratory data showed no new laboratory data for review today. No new imaging for review today. No other complaint. REVIEW OF SYSTEMS: 12 point ROS reviewed with patient. Pertinent positives mentioned above. Otherwise negative. PHYSICAL EXAM: GENERAL: Alert, weak, awake oriented x 3 HEENT: EOMI, Sclera non icteric, moist mucosa NECK: Supple, no JVD, trachea midline LUNGS: Clear breath sounds bilaterally. No wheezes HEART: Regular rate and rhythm. Normal S1 and S2, without murmurs ABD: Abdomen soft, nontender. Bowel sounds present EXT: No clubbing cyanosis or edema Skin: Sternotomy site erythema. NEURO: Alert and oriented to person, follows commands Vital Signs (last 8hr) Date Time Temp Pulse Resp B/P (MAP) Pulse Ox O2 Delivery O2 Flow Rate FiO2 05/30/24 12:21 98.2 86 18 105/65 97 05/30/24 08:33 98.2 88 17 95/56 05/30/24 07:25 98 Room Air* 0 21 LABS: Hematology Labs: Test 05/29/24 15:19 Range/Units White Blood Count 10.6 4.8-10.8 K/uL Red Blood Count 3.20 L 4.50-6.20 MIL/uL Hemoglobin 9.2 L 14.0-18.0 g/dL Hematocrit 30.3 L 42-54 % Mean Corpuscular Volume 94.7 79-99 fL Mean Corpuscular Hemoglobin 28.8 27.0-33.0 pg Mean Corpuscular Hemoglobin Concent 30.4 L 32.0-36.0 g/dL Red Cell Distribution Width 13.9 11.0-15.5 % Platelet Count 318 130-400 K/uL Mean Platelet Volume 9.2 7.5-10.5 fL Segmented Neutrophils % 80 H 40-70 % Lymphocytes % (Manual) 11 L 22-44 % Monocytes % (Manual) 7 2-9 % Eosinophils % (Manual) 2 1-6 % Nucleated Red Blood Cells 0.0 0.0-0.19 % Differential Comment MANUAL DIFFERENTIAL White Cell Morphology Comment Platelet Morphology Comment ADEQUATE Red Blood Cell Morphology ANISO 1+ Chemistry Labs: Test 05/30/24 10:54 05/29/24 15:19 Range/Units Whole Blood Glucose 234 H 70-110 MG/DL Sodium Level 137 136-145 mmol/L Potassium Level 3.4 L 3.5-5.1 mmol/L Chloride Level 96 L 101-111 mmol/L Carbon Dioxide Level 31 21-32 mmol/L Blood Urea Nitrogen 46 H 7-18 mg/dL Creatinine 5.8 H 0.5-1.3 mg/dL Glomerular Filtration Rate Calc 10 >90 mL/min Random Glucose 157 H 70-105 mg/dL Total Calcium 9.0 8.5-10.1 mg/dL C-Reactive Protein, Quantitative 56.80 H 0.5-3.0 mg/L Coagulation Labs: Test 05/30/24 02:27 Range/Units Prothrombin Time 11.4 9.6-11.6 SEC Prothromb Time International Ratio 1.08 0.85-1.15 Activated Partial Thromboplast Time 34.5 26.3-35.5 SEC DIAGNOSTICS / RADIOLOGY RESULTS: [ ] PLAN The patient was admitted to PCCU. We will consult CTVS Dr. Mitchell as well as Infectious Disease specialist Dr. Mccoy. In the meantime, we are going to continue antibiotic therapy with vancomycin and cefepime. The sternotomy site has no open area to require wound care. Because of his renal disease, we will consult the paper tube cutter to guide his peritoneal dialysis. We will review and reconcile medication list for this patient once they become available. I am going to review and reconcile medication list once this becomes available. We will continue provide general supportive care, GI and DVT prophylaxis. Further orders per attending MD and hospital course. 05/30/2024: For now, going to continue current management for the patient. We will supplement oxygenation as necessary. I am going to order a CT chest to evaluate for any underlying intrapulmonary are chest wall pathology. The patient is going to remain on antibiotic coverage currently receiving cefepime and vanco guided by the Infectious Disease specialist. Cultures were obtained and sent to lab and we will follow the antibiogram. We will monitor the patient's progress and response to management. We will continue to provide general supportive care, GI and DVT prophylaxis. Further orders per attending MD and hospital course. NEURO: Minimize central acting medications as possible. Maintain fall precautions, adequate lighting during the day PULMONARY: Supplemental 02 as needed. Maintain aspiration precautions at all times CARDIOVASCULAR: Follow hemodynamics. Vital signs per facility protocol GI & NUTRITION: Continue with nutritional support. Continue stool softeners and laxatives as needed. KIDNEYS & ELECTROLYTES: Strict monitoring of intake, output and overall fluid balance. Avoid nephrotoxic medications to the extent possible. Medications to be dosed according to renal function. Monitor electrolytes and replace as needed ENDOCRINE: Maintain blood glucose between 100-180 at all times. Hypoglycemia protocol in place INFECTIOUS DISEASE: Trend temperature, WBC and procalcitonin level Follow cultures, deescalate antibiotics as soon as possible. Panculture if new onset fever ONCOLOGY/HEMATOLOGY/COAGULATION: Monitor for s/s of bleeding Monitor hemoglobin, coagulation studies as needed SKIN: Pressure ulcer prevention per facility protocol Specialty mattress ORTHO/REHAB: Continue PT/OT Prophylaxis: Continue GI and DVT prophylaxis Code Status: Full Resuscitation Disposition: TBD Other: Total patient care time exceeds 35 minutes excluding all procedures. NITIN INGRAM NP May 30, 2024 15:16
--- NOTE | 2024-05-30 16:07 | HMCIMG ---
CT CHEST W/O CONTRAST HISTORY: Recurrent sternotomy infection COMPARISON: 10/24/2024 TECHNIQUE: Multiple sequential axial images of the chest were obtained from the thoracic inlet through upper abdomen. Patient was not given contrast through intravenous route. FINDINGS: Tiny bilateral pleural effusions are seen. Left lower lung subsegmental atelectasis changes are seen suggestive calcification. Poststernotomy changes are seen. Coronary arterial calcifications are seen. No drainable abscess collection. Mild left lung pulmonary infiltrates are seen. There is dextroscoliosis. There is no evidence of pneumothorax. There are normal size mediastinal and hilar lymph nodes. The heart is not enlarged. Degenerative changes of the thoracolumbar spine are present. There is no evidence of adrenal nodule. There is tiny ascites. IMPRESSION: 1. Tiny bilateral pleural effusions with left lower lung subsegmental atelectasis changes. No drainable abscess collection is seen. CT was performed with one or more following dose reduction techniques: automated exposure control, adjustment of the mA and kv according to patient's size, or use of a iterative reconstruction technique.
[2024-05-30] MEDS: traMADol HCL 50 MG TABLET PO SCH (16:10)
--- NOTE | 2024-05-30 17:00 | NUR ---
DR. THOMPSON HERE AND SPOKE WITH AND PLAN OF TAKING PT TO OR TO [facility]AN INC[facility] AND WILL NEED IV ANTIBIOTICS AFTER DISCHARGE. DR. THOMPSON WAS ADVISED OF MEDLINE ALREADY IN PLACE. NO ORDER TO SCHEDULE PROCEDURE IN SURGERY, MENTIONED PROCEDURE TO BE DONE ON SATURDAY.
--- NOTE | 2024-05-30 17:01 | NUR ---
DCP - INITIAL ASSESSMENT Patient lives with spouse, Aliyah Cole. He has [facility] that was coming in daily for wound care to buttocks and CABG site. Home health nurse, Sara Manzanares LVN ([phone]) sent patient to [facility] in [place]. Patient was transferred to this hospital where he had CABG on December 2023. He has [facility] services X 39 hours a week but spouse is unable to remember the name of the agency. Dialysis:Patient does Peritoneal Dialysis at home nightly. His dialysis center is [facility] in [place] on [facility] [facility]. Spouse assists with dialysis treatments. DME: BPM, glucometer (insulin), hospital bed, walker, wheelchair, shower chair, dialysis cycler. Patient needs help with ADL's and doesn't drive. Family assists with transportation. PCP is Phillip Biggs. [place] [facility] [address] [facility] in [place]. Patient voiced no safety concerns regarding returning home and states he has no difficulty with housing or buying food. DCP is home with existing Home Health. Addendum: 05/30/24 at 1708 by AMAURI BARKER SS Amended: Links added.
[2024-05-30] MEDS: finaSTERide 5 MG TABLET PO SCH (20:46)
--- NOTE | 2024-05-30 20:58 | CONS ---
INFECTIOUS DISEASE CONSULTATION DATE OF SERVICE: 05/30/2024 REQUESTING PHYSICIAN: Patience Khan MD REASON FOR CONSULTATION: Sternal wound infection. HISTORY OF PRESENT ILLNESS: A 73-year-old male with history of diabetes mellitus; coronary artery disease; ESRD, on peritoneal dialysis; who presented to hospital with sternal wound drainage. The patient also found with some altered mental status. No history of fever or chills. The patient recently had CABG done. Course was complicated by sternal wound infection and dehiscence. The patient had debridement . The patient received multiple courses of antibiotics, now found with new swelling and drainage from the proximal portion of the . PAST MEDICAL HISTORY: * ESRD, on dialysis. * CAD. * Hypertension. * Diabetes mellitus. PAST SURGICAL HISTORY: * CABG. * Peritoneal dialysis catheter placement. * Cardiac catheterization. ALLERGIES: No known drug allergy. CURRENT MEDICATIONS: Reviewed, include: * Vancomycin. * Cefepime. * Tylenol. * Insulin. * Zofran. SOCIAL HISTORY: Lives with family. No alcohol, tobacco, or illicit drug use. FAMILY HISTORY: Positive for diabetes mellitus. REVIEW OF SYSTEMS: Greater than 10 systems were reviewed, negative as documented above. PHYSICAL EXAMINATION: GENERAL: Elderly male, awake. VITAL SIGNS: Temperature 98.2, pulse 86, respiratory rate 18, BP 105/65. EYES: No icterus. Pupils equal and reactive. HENT: No oral thrush seen. Moist oral mucosa. NECK: Supple. No JVD or thyromegaly. LUNGS: Good air entry. No rales, no rhonchi. CARDIOVASCULAR: S1, S2 regular. No murmur heard. CHEST: There is an area of fluctuance with a large amount of purulent drainage involving the the sternum in the lower area. ABDOMEN: Full, soft, nontender. Bowel sound is present. CENTRAL NERVOUS SYSTEM: Awake, alert, oriented x3. No focal deficits. SKIN: No rashes, no itchiness. LYMPHATIC: No peripheral lymphadenopathy. BACK: No deformity, no pressure ulcer. LABORATORY DATA: Sodium 137, potassium 3.4, BUN 46, creatinine 5.8. WBC 10.7, hemoglobin 9.2, platelets 380. RADIOLOGY: CT of the chest shows bilateral atelectasis. ASSESSMENT: A 73-year-old male presenting with sternal wound drainage. CURRENT PROBLEMS: Include: * Sternal wound infection and abscess. * ESRD, on dialysis. * Hypertension. * Diabetes mellitus. * Coronary artery disease, status post recent CABG. * Debility. PLAN: * Continue cefepime. * Continue vancomycin. * Follow up culture. * Continue antihypertensive. * Continue antidiabetic. * The patient will need a surgical intervention with incision and drainage. * The patient will be followed up closely. Thank you for allowing me to participate in the care of this patient. TID: [id number] RECEIPT: [id number]
[2024-05-31] VITALS (8 sets, daily range): BP systolic 73–128; BP diastolic 49–76; PULSE 82–114; RESP 16–18; TEMP 98–98.7; O2SAT 97–98
--- NOTE | 2024-05-31 00:45 | NUR ---
REPORT GIVEN TO NURSE HARPAL RN, WILL CONT TO MONITOR
[2024-05-31 07:39] LABS: HEMATOCRIT 32.3 % (42-54); MEAN CORPUSCULAR HEMOGLOBIN 28.5 pg (27.0-33.0); PLATELET COUNT (AUTO) 323 K/uL (130-400); RED CELL DISTRIBUTION WIDTH 14.1 % (11.0-15.5); WHITE BLOOD COUNT (AUTO) 10.5 K/uL (4.8-10.8)
[2024-05-31 07:45] LABS: CREATININE 5.8 mg/dL (0.5-1.3); MAGNESIUM 1.8 mg/dL (1.80-2.40)
--- NOTE | 2024-05-31 07:45 | NUR ---
Patient noted with hypotension, BP 73/52, heart rate 101, lethargic with garbled language. Patient (Rosa), at bedside performing peritoneal dialysis at this time. Patient states she notice him confused since 2 hours ago and sleepy. Nurse Tico asked patient to discontinue dialysis at this time, patient was then placed in Trendelenburg position. Blood pressure recheck at 0800 was 90/54, patient more responsive at this time, alert to name. Charge nurse Mandi notified of situation, I will follow up with Dr. Conklin and Rai Morales CHECKROOM CHIEF.
[2024-05-31 08:16] LABS: LYMPHOCYTES % (MANUAL) 15 % (22-44); MONOCYTES % (MANUAL) 6 % (2-9); REACTIVE LYMPHOCYTES 2 % (0-0); SEGMENTED NEUTROPHILS % 77 % (40-70); TOTAL CELLS COUNTED 100
[2024-05-31 08:25] LABS: MAN.DIFF COMMENT-IMPRESSION MANUAL DIFFERENTIAL
--- NOTE | 2024-05-31 08:25 | NUR ---
Dr. Conklin paged for hypotension, pending call back.
[2024-05-31 08:28] LABS: PLATELET MORPHOLOGY COMMENT ADEQUATE
[2024-05-31] MEDS: ALBUMIN (HUMAN) 5% 250 ML IV ONE (09:06)
[2024-05-31] MEDS: PoTASSium chloRIDE 20MEQ ER 20 MEQ ERTAB PO SCH (09:39)
--- NOTE | 2024-05-31 09:59 | PN ---
[facility] PROGRESS NOTE Date Patient Seen: May 31, 2024 Time of Visit: 09:59 Supervising Physician: Dr. Angeles Primary Care Physician: Dr. 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 He is awake, alert and with appropriate verbal responses. His main complaint is midsternal pain. Patient is breathing on room air with optimal oxygen saturation. He is hemodynamically stable. Laboratory data showed no new laboratory data for review today. No new imaging for review today. No other complaint. 05/31/2024: At the time of my evaluation, the patient was lying bed. He was noted with hypotensive readings with systolic blood pressure in the 70s. For this, the peritoneal dialysis was aborted, the patient was placed in Trendelenburg and is showing some signs of recovery. Laboratory data today was notable for a sodium of 133 and potassium of 3.0. Blood cultures x2 are showing no growth. Imaging of the chest obtained yesterday showing bilateral pneumonia left greater than right, tiny pleural effusion and a left lower lung atelectasis. No other collection seen. For now, the patient remains on antibiotic coverage with cefepime and vancomycin. No other complaint. REVIEW OF SYSTEMS: 12 point ROS reviewed with patient. Pertinent positives mentioned above. Otherwise negative. PHYSICAL EXAM: GENERAL: Alert, weak, awake oriented x 3 HEENT: EOMI, Sclera non icteric, moist mucosa NECK: Supple, no JVD, trachea midline LUNGS: Diminished breath sounds bilaterally. No wheezes HEART: Regular rate and rhythm. Normal S1 and S2, without murmurs ABD: Abdomen soft, nontender. Bowel sounds present EXT: No clubbing cyanosis or edema Skin: Sternotomy site erythema. NEURO: Alert and oriented to person, follows commands Vital Signs (last 8hr) Date Time Temp Pulse Resp B/P (MAP) Pulse Ox O2 Delivery O2 Flow Rate FiO2 05/31/24 07:35 98.4 101 18 73/52 100 Room Air 05/31/24 04:08 98.8 105 18 97/49 93 Room Air LABS: Hematology Labs: Test 05/31/24 07:33 05/29/24 15:19 Range/Units White Blood Count 10.5 4.8-10.8 K/uL Red Blood Count 3.40 L 4.50-6.20 MIL/uL Hemoglobin 9.7 L 14.0-18.0 g/dL Hematocrit 32.3 L 42-54 % Mean Corpuscular Volume 95.0 79-99 fL Mean Corpuscular Hemoglobin 28.5 27.0-33.0 pg Mean Corpuscular Hemoglobin Concent 30.0 L 32.0-36.0 g/dL Red Cell Distribution Width 14.1 11.0-15.5 % Platelet Count 323 130-400 K/uL Mean Platelet Volume 9.3 7.5-10.5 fL Segmented Neutrophils % 77 H 40-70 % Lymphocytes % (Manual) 15 L 22-44 % Monocytes % (Manual) 6 2-9 % Nucleated Red Blood Cells 0.0 0.0-0.19 % Differential Comment MANUAL DIFFERENTIAL Reactive Lymphocytes 2 H 0-0 % White Cell Morphology Comment Platelet Morphology Comment ADEQUATE Red Blood Cell Morphology HYPOCHROM CELLS 1+ Eosinophils % (Manual) 2 1-6 % Chemistry Labs: Test 05/31/24 07:33 05/31/24 06:20 05/29/24 15:19 Range/Units Sodium Level 133 L 136-145 mmol/L Potassium Level 3.0 *L 3.5-5.1 mmol/L Chloride Level 95 L 101-111 mmol/L Carbon Dioxide Level 30 21-32 mmol/L Blood Urea Nitrogen 36 H 7-18 mg/dL Creatinine 5.8 H 0.5-1.3 mg/dL Glomerular Filtration Rate Calc 10 >90 mL/min Random Glucose 300 H 70-105 mg/dL Total Calcium 9.6 8.5-10.1 mg/dL Magnesium Level 1.80 1.80-2.40 mg/dL Whole Blood Glucose 292 #H 70-110 MG/DL C-Reactive Protein, Quantitative 56.80 H 0.5-3.0 mg/L Coagulation Labs: Test 05/30/24 02:27 Range/Units Prothrombin Time 11.4 9.6-11.6 SEC Prothromb Time International Ratio 1.08 0.85-1.15 Activated Partial Thromboplast Time 34.5 26.3-35.5 SEC DIAGNOSTICS / RADIOLOGY RESULTS: [ ] PLAN The patient was admitted to PCCU. We will consult CTVS Dr. Mitchell as well as Infectious Disease specialist Dr. Mccoy. In the meantime, we are going to continue antibiotic therapy with vancomycin and cefepime. The sternotomy site has no open area to require wound care. Because of his renal disease, we will consult the filling machine operator to guide his peritoneal dialysis. We will review and reconcile medication list for this patient once they become available. I am going to review and reconcile medication list once this becomes available. We will continue provide general supportive care, GI and DVT prophylaxis. Further orders per attending MD and hospital course. 05/30/2024: For now, going to continue current management for the patient. We will supplement oxygenation as necessary. I am going to order a CT chest to evaluate for any underlying intrapulmonary are chest wall pathology. The patient is going to remain on antibiotic coverage currently receiving cefepime and vanco guided by the Infectious Disease specialist. Cultures were obtained and sent to lab and we will follow the antibiogram. We will monitor the patient's progress and response to management. We will continue to provide general supportive care, GI and DVT prophylaxis. Further orders per attending MD and hospital course. 05/31/2024: For now, going to continue current management for the patient. Going to order a dose of albumin 5% 250 mL. We will continue to monitor the blood pressure trend. The staff nurse to notify the filling machine operator regarding the electrolyte derangements for correction. We will repeat surveillance labs in the morning. We will follow the antibiotic guidance by the Infectious Disease specialist. We will monitor the patient's progress and response to management. We will continue to provide general supportive care, GI and DVT prophylaxis. Further orders per attending MD and hospital course. 1543: At this time, I was called back to the bedside regarding again drop in blood pressure. Current blood pressure reading 89/60, map of 73 and heart rate of 87. Discussed with the staff nurse at the bedside to continue monitoring the blood pressure and maintain map above 65. Going to request lactic acid, protocol level, blood cultures x2 and a sputum culture. We will await the I nfectious Disease input regarding antibiotic guidance. No further recommendation. NEURO: Minimize central acting medications as possible. Maintain fall precautions, adequate lighting during the day PULMONARY: Supplemental 02 as needed. Maintain aspiration precautions at all times CARDIOVASCULAR: Follow hemodynamics. Vital signs per facility protocol GI & NUTRITION: Continue with nutritional support. Continue stool softeners and laxatives as needed. KIDNEYS & ELECTROLYTES: Strict monitoring of intake, output and overall fluid balance. Avoid nephrotoxic medications to the extent possible. Medications to be dosed according to renal function. Monitor electrolytes and replace as needed ENDOCRINE: Maintain blood glucose between 100-180 at all times. Hypoglycemia protocol in place INFECTIOUS DISEASE: Trend temperature, WBC and procalcitonin level Follow cultures, deescalate antibiotics as soon as possible. Panculture if new onset fever ONCOLOGY/HEMATOLOGY/COAGULATION: Monitor for s/s of bleeding Monitor hemoglobin, coagulation studies as needed SKIN: Pressure ulcer prevention per facility protocol Specialty mattress ORTHO/REHAB: Continue PT/OT Prophylaxis: Continue GI and DVT prophylaxis Code Status: Full Resuscitation Disposition: TBD Other: I personally spent 55 minutes of critical care time in treatment of this patient. This includes patient management, time at bedside, time reviewing tests, labs, appropriate images and studies, documentation, patient care coordination and time spent at called back to the bedside by the nurse. This time excludes separately billable procedures. NITIN INGRAM NP May 31, 2024 09:59
[2024-05-31] MEDS: LACTATED RINGERS 1000ML 1,000 ML IV SCH ×2 (16:46→18:50)
[2024-05-31] MEDS: DEXTROSE 50%-WATER 50 ML DISP.SYRIN IV ONE (17:40)
--- NOTE | 2024-05-31 17:55 | NUR ---
Was informed by monitor room that patient converted from sinus rhythm to atrial fibrillation with a pulse of 120, patient alert/oriented to name only, Rosa at bedside. Blood pressure 104/62, patient denies headache, syncope or vertigo. Rai Morales INTERNAL COMBUSTION ENGINE ASSEMBLER notified, gave orders for EKG and to cover magnesium level of 1.8. I will notify shift manager litigation legal assistant provider of patient condition change.
[2024-05-31] MEDS: MAGNESIUM 2GM PREMIX 50ML 50 ML IV ONE (18:06)
--- NOTE | 2024-05-31 18:16 | NUR ---
[employer] answering service paged at this time, pending call back.
--- NOTE | 2024-05-31 18:43 | EKG ---
[facility] Test Date: 2024-05-31 Test Time: 18:10:40 Pat Name: HI CHAMPAGNE Department: [facility] Room: 225 1 Gender: M Flat Sorting Machine Clerk: [id number] : 1950 Requested By: NITIN INGRAM Order Number: [id number] Reading MD: Ciro Carney Measurements Intervals [place] Rate: 122 P: 0 TN: 0 QRS: -26 QRSD: 103 T: 167 QT: 325 QTc: 463 Interpretive Statements Atrial fibrillation Nonspecific T abnormalities, lateral leads, consider ischemia Compared to ECG 03/26/2024 10:41:50 T-wave abnormality now present Sinus rhythm no longer present Left ventricular hypertrophy no longer present Early repolarization no longer present Electronically Signed On 06-02-2024 23:17:26 CDT by Ciro Carney Please click the below link to view image of tracing.
--- NOTE | 2024-05-31 18:45 | NUR ---
As per Wilmer HI, give one dose of LR 500ml bolus now for atrial fibrillation and monitor heart rate and blood pressure, no atrial fibrillation protocol ordered at this time. Orders carried out, will inform material handler 1st shift nurse.
--- NOTE | 2024-05-31 21:56 | PN ---
NEPHROLOGY FOLLOWUP SUBJECTIVE: No major complaints. I was informed that the patient was running low blood pressure. OBJECTIVE: GENERAL: The patient is not in any major acute distress. VITAL SIGNS: Blood pressure is 89/60, respirations 18, pulse 96, temperature 98.1. LUNGS: Clear on auscultation. HEART: Normal cardiac sound. ABDOMEN: Soft, nondistended. EXTREMITIES: No edema. LABORATORY DATA: WBC count is 10.5, hemoglobin 9.7. Sodium is 133, potassium 3.0, BUN 36, creatinine 5.8. ASSESSMENT: * End-stage renal disease. * Diabetes mellitus type 2 with nephropathy. * Hypertension with renal manifestation. * Anemia and chronic kidney disease. * Hypokalemia. * Infected surgical wound in the sternal area. PLAN: To continue present plan of care. The patient is on midodrine for the management of hypotension. We will continue with peritoneal dialysis with 1.5% of fluid concentration. Stop Flomax, this can cause hypotension. We will continue monitoring the patient's blood pressure. All other plans as per other physicians involved in the care of the patient. TID: [id number] RECEIPT: [id number]
[2024-06-01] VITALS (24 sets, daily range): BP systolic 100–154; BP diastolic 53–83; PULSE 70–110; RESP 13–22; TEMP 96–99.2; O2SAT 95–98
[2024-06-01] MEDS: SODIUM CHLORIDE 3% FOR INHALATION 4 ML/AMP VIAL.NEB IH ONE ×3 (02:24→20:17)
[2024-06-01 03:47] LABS: BASOPHILS # (AUTO) 0.02 K/uL (0.00-0.20); BASOPHILS % (AUTO) 0.2 % (0.0-5.0); EOSINOPHILS % (AUTO) 3.6 % (0.0-8.0); IMMATURE GRANULOCYTE ABSOLUTE 0.14 K/uL (0-1); LYMPHOCYTES # (AUTO) 1.5 K/uL (1.0-4.8); LYMPHOCYTES % (AUTO) 13.9 % (21.0-51.0); MEAN CORPUSCULAR HEMOGLOBIN 29.2 pg (27.0-33.0); MEAN CORPUSCULAR HGB CONC 30.7 g/dL (32.0-36.0); MEAN CORPUSCULAR VOLUME 95.1 fL (79-99); MONOCYTES # (AUTO) 0.7 K/uL (0.1-1.0); MONOCYTES % (AUTO) 6.5 % (3.0-13.0); NEUTROPHILS # (AUTO) 8.2 K/uL (1.8-7.7); NEUTROPHILS % (AUTO) 74.5 % (40.0-77.0); PLATELET COUNT (AUTO) 281 K/uL (130-400); RED BLOOD CELL COUNT(AUTO) 3.05 MIL/uL (4.50-6.20); RED CELL DISTRIBUTION WIDTH 14.2 % (11.0-15.5); WHITE BLOOD COUNT (AUTO) 11.1 K/uL (4.8-10.8)
[2024-06-01 04:08] LABS: ALBUMIN 1.8 g/dL (3.5-5.0); BILIRUBIN,TOTAL 0.3 mg/dL (0.2-1.0); CREATININE 5.2 mg/dL (0.5-1.3); MAGNESIUM 2.1 mg/dL (1.80-2.40); PHOSPHORUS 5.2 mg/dL (2.5-4.9); TOTAL PROTEIN, SERUM 5.9 g/dL (6.0-8.3)
--- NOTE | 2024-06-01 04:21 | NUR ---
Potassium 3.0 critical results given to DEACON BEAMER OPERATOR. As per provider potassium will be covered at 0900 with scheduled potassium replacement.
--- NOTE | 2024-06-01 07:55 | PN ---
INFECTIOUS DISEASE FOLLOWUP NOTE DATE OF SERVICE: 05/31/2024 SUBJECTIVE: The patient is seen and examined at bedside. No fever or chills. No nausea, no vomiting, no abdominal pain. Denied cough, shortness of breath. No palpitations or orthopnea. No depression. No suicidal ideation. No heat or cold intolerance. No bleeding tendency. No rashes or itchiness. PHYSICAL EXAMINATION: VITAL SIGNS: Temperature today 98.7. EYES: No icterus. No conjunctival hemorrhage. HENT: No oral thrush seen. Moist oral mucosa. NECK: Supple, no JVD or thyromegaly. LUNGS: Good air entry. No rales, no rhonchi. CARDIOVASCULAR: S1, S2 regular. No murmurs heard. CHEST: Pustule with purulent drainage involving the sternal incision. CENTRAL NERVOUS SYSTEM: Awake, alert, oriented x 3. ABDOMEN: Obese, soft, nontender. Bowel sound is present. SKIN: No rashes, no itchiness. MUSCULOSKELETAL: No joint swelling, erythema or tenderness. ASSESSMENT: The patient is a 73-year-old male with multiple problems which include: * Sternal abscess. * Hypertension. * Coronary artery disease. * Debility. * Leukocytosis. * Coronary artery bypass grafting. PLAN: * Continue pain management. * Continue nutritional support. * Continue cefepime. * Continue vancomycin. * Follow up cultures. * Monitor electrolytes. * Continue antiplatelet. * Monitor renal function. TID: [id number] RECEIPT: [id number]
--- NOTE | 2024-06-01 14:28 | NUR ---
to OR via bed accomp by staff tele dc d portable monitor applied
[2024-06-01] MEDS: DEXTROSE 50%-WATER 50 ML DISP.SYRIN IV SCH (14:40)
[2024-06-01] MEDS ORDERED: dexaMETHasone SOD PHOSPHATE 4 MG/ML 1ML VIAL ONE (14:40)
[2024-06-01] MEDS ORDERED: LIDOCAINE PF 100MG/5ML (2%) SYRINGE 5ML ONE (14:40)
[2024-06-01] MEDS ORDERED: FENTanyl CITRate PF 50 MCG/1 ML 2ML VIAL ONE (14:41)
[2024-06-01] MEDS ORDERED: ondanSETRON 4MG INJ ONE (14:41)
[2024-06-01] MEDS ORDERED: MIDAZOLAM HCL 1 MG/ML 2ML VIAL ONE (14:41)
[2024-06-01] MEDS ORDERED: proPOFol 10 MG/ML 20ML VIAL IV ONE (14:41)
[2024-06-01] MEDS ORDERED: NEOSTIGMINE METHYLSULFATE 1MG/ML IV ONE (14:41)
[2024-06-01] MEDS ORDERED: rocuRONium bROMide 10MG/1ML 5ML VL ONE (14:41)
[2024-06-01] MEDS ORDERED: GLYCOPYRROLATE 0.2 MG/ML 5 ML VIAL ONE (14:41)
[2024-06-01] MEDS: DEXTROSE 50%-WATER 50 ML DISP.SYRIN IV ONE (14:46)
--- NOTE | 2024-06-01 14:53 | PN ---
PROGRESS NOTE Date of Service: Jun 01, 2024 Time of Service: 14:49 SUBJECTIVE: No new concerns, no acute events reported in the last 24hours. Hypokalemia being addressed tolerating PD treatments REVIEW OF SYSTEMS CONSTITUTIONAL: Denies fever, chills, or fatigue. HEAD/FACE: No signs of trauma. EENT: Denies eye pain, blurred vision, double vision, or light sensitivity. RESPIRATORY: Denies shortness of breath, cough, wheezing CARDIOVASCULAR: Denies chest pain, palpitation, syncope GASTROINTESTINAL/ABDOMINAL: Denies abdominal pain, constipation, diarrhea, nausea or vomiting GENITOURINARY: Denies dysuria or hematuria. MUSCULOSKELETAL: Denies joint pain, tenderness, or trauma. INTEGUMENTARY: Denies rash or itchiness NEUROLOGICAL/PSYCH: Denies anxiety, depression, heat or cold intolerance. PHYSICAL EXAM EYES: Anicteric. Pupils equal and reactive. HENT: No oral thrush seen, moist Oral mucosa NECK: Supple, no JVD or thyromegaly. LUNGS: Good air entry. No rales, no rhonchi. CARDIOVASCULAR: S1, S2 regular. No murmur heard. ABDOMEN: Soft, non tender, bowel sounds present, no organomegaly CENTRAL NERVOUS SYSTEM: Awake, alert, oriented x 3. No focal deficits. SKIN: No rashes, no swelling. LYMPHATICS: No peripheral lymphadenopathy MUSCULOSKELETAL: No joint swelling, erythema or tenderness. EXTREMITIES: No cyanosis or clubbing BACK: No deformity, no pressure ulcer. GENITOURINARY: No dysuria or hematuria Vital Signs (last 8hr) Date Time Temp Pulse Resp B/P (MAP) Pulse Ox O2 Delivery O2 Flow Rate FiO2 06/01/24 11:00 98.6 82 18 128/74 98 Room Air 06/01/24 08:30 98 Room Air* 0 21 06/01/24 07:00 99.1 84 20 117/63 99 Room Air LABS: Laboratory: Test 06/01/24 14:37 06/01/24 03:25 05/31/24 16:29 05/31/24 07:33 Range/Units Whole Blood Glucose 68 L 70-110 MG/DL White Blood Count 11.1 H 4.8-10.8 K/uL Red Blood Count 3.05 L 4.50-6.20 MIL/uL Hemoglobin 8.9 L 14.0-18.0 g/dL Hematocrit 29.0 L 42-54 % Mean Corpuscular Volume 95.1 79-99 fL Mean Corpuscular Hemoglobin 29.2 27.0-33.0 pg Mean Corpuscular Hemoglobin Concent 30.7 L 32.0-36.0 g/dL Red Cell Distribution Width 14.2 11.0-15.5 % Platelet Count 281 130-400 K/uL Mean Platelet Volume 9.5 7.5-10.5 fL Immature Granulocyte % (Auto) 1.3 H 0-1 % Neutrophils (%) (Auto) 74.5 40.0-77.0 % Lymphocytes (%) (Auto) 13.9 L 21.0-51.0 % Monocytes (%) (Auto) 6.5 3.0-13.0 % Eosinophils (%) (Auto) 3.6 0.0-8.0 % Basophils (%) (Auto) 0.2 0.0-5.0 % Neutrophils # (Auto) 8.2 H 1.8-7.7 K/uL Lymphocytes # (Auto) 1.5 1.0-4.8 K/uL Monocytes # (Auto) 0.7 0.1-1.0 K/uL Eosinophils # (Auto) 0.40 0.00-0.70 K/uL Basophils # (Auto) 0.02 0.00-0.20 K/uL Absolute Immature Granulocyte (auto 0.14 0-1 K/uL Nucleated Red Blood Cells 0.0 0.0-0.19 % Sodium Level 134 L 136-145 mmol/L Potassium Level 3.0 *L 3.5-5.1 mmol/L Chloride Level 97 L 101-111 mmol/L Carbon Dioxide Level 32 21-32 mmol/L Blood Urea Nitrogen 35 H 7-18 mg/dL Creatinine 5.2 H 0.5-1.3 mg/dL Glomerular Filtration Rate Calc 11 >90 mL/min Random Glucose 114 #H 70-105 mg/dL Total Calcium 9.2 8.5-10.1 mg/dL Phosphorus Level 5.2 H 2.5-4.9 mg/dL Magnesium Level 2.10 1.80-2.40 mg/dL Total Bilirubin 0.3 0.2-1.0 mg/dL Aspartate Amino Transf (AST/SGOT) 18 10-37 U/L Alanine Aminotransferase (ALT/SGPT) 9 L 12-78 U/L Alkaline Phosphatase 88 50-136 U/L Total Protein 5.9 L 6.0-8.3 g/dL Albumin 1.8 L 3.5-5.0 g/dL Lactic Acid Level 1.8 0.8-2.5 mmol/L Procalcitonin 0.66 H 0.05-0.5 ng/mL Segmented Neutrophils % 77 H 40-70 % Lymphocytes % (Manual) 15 L 22-44 % Monocytes % (Manual) 6 2-9 % Differential Comment MANUAL DIFFERENTIAL Reactive Lymphocytes 2 H 0-0 % White Cell Morphology Comment Platelet Morphology Comment ADEQUATE Red Blood Cell Morphology HYPOCHROM CELLS 1+ DIAGNOSTICS / RADIOLOGY: CT CHEST W/O CONTRAST HISTORY: Recurrent sternotomy infection COMPARISON: 10/24/2024 TECHNIQUE: Multiple sequential axial images of the chest were obtained from the thoracic inlet through upper abdomen. Patient was not given contrast through intravenous route. FINDINGS: Tiny bilateral pleural effusions are seen. Left lower lung subsegmental atelectasis changes are seen suggestive calcification. Poststernotomy changes are seen. Coronary arterial calcifications are seen. No drainable abscess collection. Mild left lung pulmonary infiltrates are seen. There is dextroscoliosis. There is no evidence of pneumothorax. There are normal size mediastinal and hilar lymph nodes. The heart is not enlarged. Degenerative changes of the thoracolumbar spine are present. There is no evidence of adrenal nodule. There is tiny ascites. IMPRESSION: 1. Tiny bilateral pleural effusions with left lower lung subsegmental atelectasis changes. No drainable abscess collection is seen. CT was performed with one or more following dose reduction techniques: automated exposure control, adjustment of the mA and kv according to patient's size, or use of a iterative reconstruction technique. ASSESSMENT: End-stage renal disease. Diabetes mellitus type 2 with nephropathy. Hypertension with renal manifestation. Anemia and chronic kidney disease. Hypokalemia. Infected surgical wound in the sternal area. PLAN: To continue present plan of care. The patient is on midodrine for the management of hypotension. We will continue with peritoneal dialysis with 1.5% of fluid concentration. Monitor patients BP Monitor Electrolytes replenish as per protocol Monitor Nutritional status Continue antimicrobials KELVIN CONTRERAS AGPCBONIFACIO Jun 01, 2024 14:53
[2024-06-01] MEDS: ceFAZolin SODIUM 2 GM VIAL IVPB ONE (15:45)
[2024-06-01] MEDS ORDERED: ceFAZolin SODIUM 1 GM VIAL ONE ×2 (15:49→15:51)
[2024-06-01] MEDS ORDERED: PHARMACY COMMUNICATION MISC SCH (16:00)
--- NOTE | 2024-06-01 16:48 | PN ---
INFECTIOUS DISEASE PROGRESS NOTE Date of Service: Jun 01, 2024 SUBJECTIVE: This is a 73 year old male patient who was seen and examined at bedside in room 225. Patient is awake, alert, [place]-speaking only. Patient's at bedside. No fever this morning, temperature is 99.1 and a WBC of 11.1. Purulent drainage from the sternotomy and patient is scheduled for sternotomy debridement for today. We will follow up on the culture results. The peritoneal catheter site is clean dry. We will continue on cefepime. No other issues reported by nursing. PHYSICAL EXAM EYES: Anicteric. Pupils equal and reactive. HENT: No oral thrush seen, moist Oral mucosa. NECK: Supple, no JVD or thyromegaly. CHEST: Sternotomy abscess. LUNGS: Good air entry. No rales, no rhonchi. CARDIOVASCULAR: S1, S2 regular. No murmur heard. ABDOMEN: Soft, non tender, bowel sounds present, no organomegaly. Peritoneal catheter. CENTRAL NERVOUS SYSTEM: Awake, alert, oriented x 3. SKIN: No rashes, no swelling. LYMPHATICS: No peripheral lymphadenopathy. MUSCULOSKELETAL: No joint swelling, erythema or tenderness. EXTREMITIES: No cyanosis or clubbing. BACK: No deformity, no pressure ulcer. GENITOURINARY: No dysuria or hematuria. Vital Sign (Last 12 Hours) 06/01/24 06/01/24 06/01/24 07:00 08:30 11:00 Temp 99.1 98.6 Pulse 84 82 Resp 20 18 B/P (MAP) 117/63 128/74 Pulse Ox 99 98 98 O2 Delivery Room Air Room Air* Room Air O2 Flow Rate 0 FiO2 21 Intake & Output (last 24hrs) 05/31/24 05/31/24 06/01/24 15:00 23:00 07:00 Intake Total 300.0 ml 778.0 ml Balance 300.0 ml 778.0 ml LABS: Laboratory: Test 06/01/24 16:38 06/01/24 03:25 05/31/24 16:29 05/31/24 07:33 Range/Units Whole Blood Glucose 82 70-110 MG/DL White Blood Count 11.1 H 4.8-10.8 K/uL Red Blood Count 3.05 L 4.50-6.20 MIL/uL Hemoglobin 8.9 L 14.0-18.0 g/dL Hematocrit 29.0 L 42-54 % Mean Corpuscular Volume 95.1 79-99 fL Mean Corpuscular Hemoglobin 29.2 27.0-33.0 pg Mean Corpuscular Hemoglobin Concent 30.7 L 32.0-36.0 g/dL Red Cell Distribution Width 14.2 11.0-15.5 % Platelet Count 281 130-400 K/uL Mean Platelet Volume 9.5 7.5-10.5 fL Immature Granulocyte % (Auto) 1.3 H 0-1 % Neutrophils (%) (Auto) 74.5 40.0-77.0 % Lymphocytes (%) (Auto) 13.9 L 21.0-51.0 % Monocytes (%) (Auto) 6.5 3.0-13.0 % Eosinophils (%) (Auto) 3.6 0.0-8.0 % Basophils (%) (Auto) 0.2 0.0-5.0 % Neutrophils # (Auto) 8.2 H 1.8-7.7 K/uL Lymphocytes # (Auto) 1.5 1.0-4.8 K/uL Monocytes # (Auto) 0.7 0.1-1.0 K/uL Eosinophils # (Auto) 0.40 0.00-0.70 K/uL Basophils # (Auto) 0.02 0.00-0.20 K/uL Absolute Immature Granulocyte (auto 0.14 0-1 K/uL Nucleated Red Blood Cells 0.0 0.0-0.19 % Sodium Level 134 L 136-145 mmol/L Potassium Level 3.0 *L 3.5-5.1 mmol/L Chloride Level 97 L 101-111 mmol/L Carbon Dioxide Level 32 21-32 mmol/L Blood Urea Nitrogen 35 H 7-18 mg/dL Creatinine 5.2 H 0.5-1.3 mg/dL Glomerular Filtration Rate Calc 11 >90 mL/min Random Glucose 114 #H 70-105 mg/dL Total Calcium 9.2 8.5-10.1 mg/dL Phosphorus Level 5.2 H 2.5-4.9 mg/dL Magnesium Level 2.10 1.80-2.40 mg/dL Total Bilirubin 0.3 0.2-1.0 mg/dL Aspartate Amino Transf (AST/SGOT) 18 10-37 U/L Alanine Aminotransferase (ALT/SGPT) 9 L 12-78 U/L Alkaline Phosphatase 88 50-136 U/L Total Protein 5.9 L 6.0-8.3 g/dL Albumin 1.8 L 3.5-5.0 g/dL Lactic Acid Level 1.8 0.8-2.5 mmol/L Procalcitonin 0.66 H 0.05-0.5 ng/mL Segmented Neutrophils % 77 H 40-70 % Lymphocytes % (Manual) 15 L 22-44 % Monocytes % (Manual) 6 2-9 % Differential Comment MANUAL DIFFERENTIAL Reactive Lymphocytes 2 H 0-0 % White Cell Morphology Comment Platelet Morphology Comment ADEQUATE Red Blood Cell Morphology HYPOCHROM CELLS 1+ ASSESSMENT: Sternotomy abscess. CAD with history of coronary artery bypass grafting. Leukocytosis. End-stage renal disease, on peritoneal dialysis. Anemia. Hypokalemia. Hypertension. Debility. PLAN: Continue cefepime IV. Vancomycin per pharmacy protocol. Continue wound care. Continue peritoneal dialysis as recommended by sales exhibitor. Patient has been evaluated by Cardiothoracic surgeon and is scheduled for sternotomy debridement. We will follow up on the culture results. We will monitor electrolytes. This case was reviewed and discussed with my supervising physician and the above assessment and plan was formulated and agreed upon. ATTESTATION BY PHYSICIAN I have seen and examined the patient. I reviewed the documentation, medical decision making, and treatment plan as noted by the mid-level provider above. I agree with the findings and plan of care. MARTA TOBIN MD, [facility] Jun 01, 2024 16:48
[2024-06-01] MEDS ORDERED: traMADol HCL 50 MG TABLET PO PRN (17:00)
[2024-06-01] MEDS: ceFEPime HCL 1 GM VIAL IVPB SCH (17:57)
[2024-06-01] MEDS: traMADol HCL 50 MG TABLET PO PRN (20:39)
--- NOTE | 2024-06-01 22:51 | PN ---
[facility] PROGRESS NOTE Date Patient Seen: Jun 01, 2024 Time of Visit: 12:50 Supervising Physician: Dr. Angeles Primary Care Physician: Dr. 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 He is awake, alert and with appropriate verbal responses. His main complaint is midsternal pain. Patient is breathing on room air with optimal oxygen saturation. He is hemodynamically stable. Laboratory data showed no new laboratory data for review today. No new imaging for review today. No other complaint. 05/31/2024: At the time of my evaluation, the patient was lying bed. He was noted with hypotensive readings with systolic blood pressure in the 70s. For this, the peritoneal dialysis was aborted, the patient was placed in Trendelenburg and is showing some signs of recovery. Laboratory data today was notable for a sodium of 133 and potassium of 3.0. Blood cultures x2 are showing no growth. Imaging of the chest obtained yesterday showing bilateral pneumonia left greater than right, tiny pleural effusion and a left lower lung atelectasis. No other collection seen. For now, the patient remains on antibiotic coverage with cefepime and vancomycin. No other complaint. 06/01/2024: At the time of my evaluation, the patient was lying in bed. He remains on room air and on the monitor he is hemodynamically stable. Laboratory data did show was slight increase of WBC to 11.1, H&H 8.9/29.0 and a platelet count of 281. Chemistry panel showed a sodium of 134, potassium 3.0, chloride is 97, CO2 of 32, BUN is 35, creatinine of 5.2 and a random glucose of 114. Phosphorus of 5.2. Blood cultures collected currently showing no growth, anaerobic cultures showing no anaerobes and aerobic cultures showing no growth. No imaging of the chest for review today. The patient continues on antibiotic therapy no new complaint. REVIEW OF SYSTEMS: 12 point ROS reviewed with patient. Pertinent positives mentioned above. Otherwise negative. PHYSICAL EXAM: GENERAL: Alert, weak, awake oriented x 3 HEENT: EOMI, Sclera non icteric, moist mucosa NECK: Supple, no JVD, trachea midline LUNGS: Diminished breath sounds bilaterally. No wheezes HEART: Regular rate and rhythm. Normal S1 and S2, without murmurs ABD: Abdomen soft, nontender. Bowel sounds present EXT: No clubbing cyanosis or edema Skin: Sternotomy site erythema and purulent drainage. NEURO: Alert and oriented to person, follows commands Vital Signs (last 8hr) Date Time Temp Pulse Resp B/P (MAP) Pulse Ox O2 Delivery O2 Flow Rate FiO2 06/01/24 20:39 98.8 84 18 154/83 94 Room Air 06/01/24 20:00 95 Room Air* 0 21 06/01/24 19:00 89 140/79 97 Room Air 06/01/24 18:30 89 140/79 97 Room Air 06/01/24 18:15 70 133/76 100 Room Air 06/01/24 18:00 83 133/78 100 Room Air 06/01/24 17:45 88 136/79 100 Room Air 06/01/24 17:30 96.1 89 18 137/53 100 Room Air 06/01/24 17:15 97.9 85 18 142/78 100 Nasal Cannula 2.0 06/01/24 17:10 86 21 141/78 100 Nasal Cannula 2.0 06/01/24 17:05 86 19 146/79 100 Nasal Cannula 2.0 06/01/24 17:00 86 19 145/78 100 Nasal Cannula 2.0 06/01/24 16:55 87 18 142/78 100 Nasal Cannula 2.0 06/01/24 16:50 89 14 137/76 100 Nasal Cannula 2.0 06/01/24 16:45 85 13 141/79 100 Nonrebreathing Mask 100 06/01/24 16:40 83 19 133/71 100 Nonrebreathing Mask 100 06/01/24 16:35 82 22 139/73 100 Nonrebreathing Mask 100 06/01/24 16:30 97.5 84 16 135/74 100 Nonrebreathing Mask 100 LABS: Hematology Labs: Test 06/01/24 03:25 05/31/24 07:33 Range/Units White Blood Count 11.1 H 4.8-10.8 K/uL Red Blood Count 3.05 L 4.50-6.20 MIL/uL Hemoglobin 8.9 L 14.0-18.0 g/dL Hematocrit 29.0 L 42-54 % Mean Corpuscular Volume 95.1 79-99 fL Mean Corpuscular Hemoglobin 29.2 27.0-33.0 pg Mean Corpuscular Hemoglobin Concent 30.7 L 32.0-36.0 g/dL Red Cell Distribution Width 14.2 11.0-15.5 % Platelet Count 281 130-400 K/uL Mean Platelet Volume 9.5 7.5-10.5 fL Immature Granulocyte % (Auto) 1.3 H 0-1 % Neutrophils (%) (Auto) 74.5 40.0-77.0 % Lymphocytes (%) (Auto) 13.9 L 21.0-51.0 % Monocytes (%) (Auto) 6.5 3.0-13.0 % Eosinophils (%) (Auto) 3.6 0.0-8.0 % Basophils (%) (Auto) 0.2 0.0-5.0 % Neutrophils # (Auto) 8.2 H 1.8-7.7 K/uL Lymphocytes # (Auto) 1.5 1.0-4.8 K/uL Monocytes # (Auto) 0.7 0.1-1.0 K/uL Eosinophils # (Auto) 0.40 0.00-0.70 K/uL Basophils # (Auto) 0.02 0.00-0.20 K/uL Absolute Immature Granulocyte (auto 0.14 0-1 K/uL Nucleated Red Blood Cells 0.0 0.0-0.19 % Segmented Neutrophils % 77 H 40-70 % Lymphocytes % (Manual) 15 L 22-44 % Monocytes % (Manual) 6 2-9 % Differential Comment MANUAL DIFFERENTIAL Reactive Lymphocytes 2 H 0-0 % White Cell Morphology Comment Platelet Morphology Comment ADEQUATE Red Blood Cell Morphology HYPOCHROM CELLS 1+ Chemistry Labs: Test 06/01/24 20:15 06/01/24 03:25 05/31/24 16:29 Range/Units Whole Blood Glucose 122 H 70-110 MG/DL Sodium Level 134 L 136-145 mmol/L Potassium Level 3.0 *L 3.5-5.1 mmol/L Chloride Level 97 L 101-111 mmol/L Carbon Dioxide Level 32 21-32 mmol/L Blood Urea Nitrogen 35 H 7-18 mg/dL Creatinine 5.2 H 0.5-1.3 mg/dL Glomerular Filtration Rate Calc 11 >90 mL/min Random Glucose 114 #H 70-105 mg/dL Total Calcium 9.2 8.5-10.1 mg/dL Phosphorus Level 5.2 H 2.5-4.9 mg/dL Magnesium Level 2.10 1.80-2.40 mg/dL Total Bilirubin 0.3 0.2-1.0 mg/dL Aspartate Amino Transf (AST/SGOT) 18 10-37 U/L Alanine Aminotransferase (ALT/SGPT) 9 L 12-78 U/L Alkaline Phosphatase 88 50-136 U/L Total Protein 5.9 L 6.0-8.3 g/dL Albumin 1.8 L 3.5-5.0 g/dL Lactic Acid Level 1.8 0.8-2.5 mmol/L Procalcitonin 0.66 H 0.05-0.5 ng/mL DIAGNOSTICS / RADIOLOGY RESULTS: [ ] PLAN The patient was admitted to [facility]. We will consult [facility] Dr. Mitchell as well as Infectious Disease specialist Dr. Mccoy. In the meantime, we are going to continue antibiotic therapy with vancomycin and cefepime. The sternotomy site has no open area to require wound care. Because of his renal disease, we will consult the dishwashing machine operator to guide his peritoneal dialysis. We will review and reconcile medication list for this patient once they become available. I am going to review and reconcile medication list once this becomes available. We will continue provide general supportive care, GI and DVT prophylaxis. Further orders per attending MD and hospital course. 05/30/2024: For now, going to continue current management for the patient. We will supplement oxygenation as necessary. I am going to order a CT chest to evaluate for any underlying intrapulmonary are chest wall pathology. The patient is going to remain on antibiotic coverage currently receiving cefepime and vanco guided by the Infectious Disease specialist. Cultures were obtained and sent to lab and we will follow the antibiogram. We will monitor the patient's progress and response to management. We will continue to provide general supportive care, GI and DVT prophylaxis. Further orders per attending MD and hospital course. 05/31/2024: For now, going to continue current management for the patient. Going to order a dose of albumin 5% 250 mL. We will continue to monitor the blood pressure trend. The staff nurse to notify the dishwashing machine operator regarding the electrolyte derangements for correction. We will repeat surveillance labs in the morning. We will follow the antibiotic guidance by the Infectious Disease specialist. We will monitor the patient's progress and response to management. We will continue to provide general supportive care, GI and DVT prophylaxis. Further orders per attending MD and hospital course. 1543: At this time, I was called back to the bedside regarding again drop in blood pressure. Current blood pressure reading 89/60, map of 73 and heart rate of 87. Discussed with the staff nurse at the bedside to continue monitoring the blood pressure and maintain map above 65. Going to request lactic acid, protocol level, blood cultures x2 and a sputum culture. We will await the Infectious Disease input regarding antibiotic guidance. No further recommendation. 06/01/2024: For now, we are going to continue current management for the patient. We are going to continue antibiotic therapy as ordered. The plan is for surgical debridement of the sternotomy surgical seroma/abscess. Because of the persisting hypotensive event, I am going to order a TSH and cortisol level. We will follow the recommendation of the treating specialist. We will monitor the patient's progress and response to management. Further orders per attending MD and hospital course. NEURO: Minimize central acting medications as possible. Maintain fall precautions, adequate lighting during the day PULMONARY: Supplemental 02 as needed. Maintain aspiration precautions at all times CARDIOVASCULAR: Follow hemodynamics. Vital signs per facility protocol GI & NUTRITION: Continue with nutritional support. Continue stool softeners and laxatives as needed. KIDNEYS & ELECTROLYTES: Strict monitoring of intake, output and overall fluid balance. Avoid nephrotoxic medications to the extent possible. Medications to be dosed according to renal function. Monitor electrolytes and replace as needed ENDOCRINE: Maintain blood glucose between 100-180 at all times. Hypoglycemia protocol in place INFECTIOUS DISEASE: Trend temperature, WBC and procalcitonin level Follow cultures, deescalate antibiotics as soon as possible. Panculture if new onset fever ONCOLOGY/HEMATOLOGY/COAGULATION: Monitor for s/s of bleeding Monitor hemoglobin, coagulation studies as needed SKIN: Pressure ulcer prevention per facility protocol Specialty mattress ORTHO/REHAB: Continue PT/OT Prophylaxis: Continue GI and DVT prophylaxis Code Status: Full Resuscitation Disposition: TBD Other: I personally spent 40 minutes of critical care time in treatment of this patient. This includes patient management, time at bedside, time reviewing tests, labs, appropriate images and studies, documentation, and patient care coordination. This time excludes separately billable procedures. NITIN INGRAM NP Jun 01, 2024 22:51
[2024-06-02] VITALS (8 sets, daily range): BP systolic 124–163; BP diastolic 74–87; PULSE 69–75; RESP 18–20; TEMP 97.5–98.9; O2SAT 95–98
[2024-06-02 04:40] LABS: BASOPHILS # (AUTO) 0.01 K/uL (0.00-0.20); BASOPHILS % (AUTO) 0.1 % (0.0-5.0); HEMATOCRIT 29.4 % (42-54); IMMATURE GRANULOCYTE ABSOLUTE 0.13 K/uL (0-1); LYMPHOCYTES # (AUTO) 0.8 K/uL (1.0-4.8); LYMPHOCYTES % (AUTO) 8.3 % (21.0-51.0); MEAN CORPUSCULAR HEMOGLOBIN 28.2 pg (27.0-33.0); MEAN CORPUSCULAR HGB CONC 29.9 g/dL (32.0-36.0); MEAN CORPUSCULAR VOLUME 94.2 fL (79-99); MONOCYTES # (AUTO) 0.3 K/uL (0.1-1.0); MONOCYTES % (AUTO) 2.9 % (3.0-13.0); NEUTROPHILS # (AUTO) 8.1 K/uL (1.8-7.7); NEUTROPHILS % (AUTO) 87.3 % (40.0-77.0); PLATELET COUNT (AUTO) 323 K/uL (130-400); RED BLOOD CELL COUNT(AUTO) 3.12 MIL/uL (4.50-6.20); RED CELL DISTRIBUTION WIDTH 14.1 % (11.0-15.5); WHITE BLOOD COUNT (AUTO) 9.3 K/uL (4.8-10.8)
[2024-06-02 05:15] LABS: ALBUMIN 1.7 g/dL (3.5-5.0); BILIRUBIN,TOTAL 0.3 mg/dL (0.2-1.0); CREATININE 5.3 mg/dL (0.5-1.3); POTASSIUM 4.8 mmol/L (3.5-5.1); THYROID STIMULATING HORMONE 1.11 uIU/mL (0.36-3.74); TOTAL PROTEIN, SERUM 6.1 g/dL (6.0-8.3)
[2024-06-02 05:17] LABS: VANCOMYCIN TROUGH 27.2 UG/ML (10.0-20.0)
--- NOTE | 2024-06-02 05:17 | NUR ---
DAYA THROUGH 27.2 REPORTED TO NURSE FAUSTINO SEGOVIA
--- NOTE | 2024-06-02 09:38 | HMCIMG ---
Exam Type: CHEST 1VW Clinical Information: PNA Comparison: None Findings: Ill-defined infiltrates of both lungs are seen consistent with bilateral pneumonia. The heart is large in size. The bony and soft tissue structures show no worrisome pathology. IMPRESSION: Findings consistent with pneumonia. Cardiomegaly. Follow-up is advised.
--- NOTE | 2024-06-02 12:30 | NUR ---
chest wound dressing saturated changed dressing 4x4 and paper tape patient tolerated well
[2024-06-02] MEDS ORDERED: ceFEPime HCL 1 GM VIAL IVPB SCH (14:00)
--- NOTE | 2024-06-02 14:26 | PN ---
[facility] PROGRESS NOTE Date Patient Seen: Jun 02, 2024 Time of Visit: 14:26 Supervising Physician: Felice Melchor MD Primary Care Physician: Dr. 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 He is awake alert and oriented x3. He has a continuos Irrigation of 10ml of Betadine with 1LNS drp to I and D site. BELKYS drain 130 ml in the last 24 hours. serosanguineous fluids. On laboratory white count is normal H&H is 8.8/29.4 slightly decreased from yesterday platelet count is normal. Chemistries sodium 132 chloride 96 BUN 37 creatinine of 5.3 and GFR of 11, Pt has qhs peritoneal Dialysis. Dr Rubin Bentleyology following. We will follow his recommendations. Pain seem to be well controlled at this time. REVIEW OF SYSTEMS: 12 point ROS reviewed with patient. Pertinent positives mentioned above. Otherwise negative. PHYSICAL EXAM: GENERAL: Alert, weak, awake oriented x 3 HEENT: EOMI, Sclera non icteric, moist mucosa NECK: Supple, no JVD, trachea midline LUNGS: Diminished breath sounds bilaterally. No wheezes HEART: Regular rate and rhythm. Normal S1 and S2, without murmurs ABD: Abdomen soft, nontender. Bowel sounds present EXT: No clubbing cyanosis or edema Skin: Sternotomy site erythema and purulent drainage. NEURO: Alert and oriented to person, follows commands Vital Signs (last 8hr) Date Time Temp Pulse Resp B/P (MAP) Pulse Ox O2 Delivery O2 Flow Rate FiO2 06/02/24 11:00 97.5 72 20 163/87 100 Room Air 06/02/24 08:00 95 Room Air* 0 21 06/02/24 07:00 97.5 75 20 138/80 98 Room Air LABS: Hematology Labs: Test 06/02/24 04:43 Range/Units White Blood Count 9.3 4.8-10.8 K/uL Red Blood Count 3.12 L 4.50-6.20 MIL/uL Hemoglobin 8.8 L 14.0-18.0 g/dL Hematocrit 29.4 L 42-54 % Mean Corpuscular Volume 94.2 79-99 fL Mean Corpuscular Hemoglobin 28.2 27.0-33.0 pg Mean Corpuscular Hemoglobin Concent 29.9 L 32.0-36.0 g/dL Red Cell Distribution Width 14.1 11.0-15.5 % Platelet Count 323 130-400 K/uL Mean Platelet Volume 9.6 7.5-10.5 fL Immature Granulocyte % (Auto) 1.4 H 0-1 % Neutrophils (%) (Auto) 87.3 H 40.0-77.0 % Lymphocytes (%) (Auto) 8.3 L 21.0-51.0 % Monocytes (%) (Auto) 2.9 L 3.0-13.0 % Eosinophils (%) (Auto) 0.0 0.0-8.0 % Basophils (%) (Auto) 0.1 0.0-5.0 % Neutrophils # (Auto) 8.1 H 1.8-7.7 K/uL Lymphocytes # (Auto) 0.8 L 1.0-4.8 K/uL Monocytes # (Auto) 0.3 0.1-1.0 K/uL Eosinophils # (Auto) 0.00 0.00-0.70 K/uL Basophils # (Auto) 0.01 0.00-0.20 K/uL Absolute Immature Granulocyte (auto 0.13 0-1 K/uL Nucleated Red Blood Cells 0.0 0.0-0.19 % Chemistry Labs: Test 06/02/24 10:54 06/02/24 04:09 06/01/24 03:25 05/31/24 16:29 Range/Units Whole Blood Glucose 217 H 70-110 MG/DL Bedside Glucose Comment Notified Nurse Sodium Level 132 L 136-145 mmol/L Potassium Level 4.8 3.5-5.1 mmol/L Chloride Level 96 L 101-111 mmol/L Carbon Dioxide Level 29 21-32 mmol/L Blood Urea Nitrogen 37 H 7-18 mg/dL Creatinine 5.3 H 0.5-1.3 mg/dL Glomerular Filtration Rate Calc 11 >90 mL/min Random Glucose 265 H 70-105 mg/dL Total Calcium 9.0 8.5-10.1 mg/dL Total Bilirubin 0.3 0.2-1.0 mg/dL Aspartate Amino Transf (AST/SGOT) 17 10-37 U/L Alanine Aminotransferase (ALT/SGPT) 9 L 12-78 U/L Alkaline Phosphatase 86 50-136 U/L Total Protein 6.1 6.0-8.3 g/dL Albumin 1.7 L 3.5-5.0 g/dL Thyroid Stimulating Hormone (TSH) 1.11 # 0.36-3.74 uIU/mL Phosphorus Level 5.2 H 2.5-4.9 mg/dL Magnesium Level 2.10 1.80-2.40 mg/dL Lactic Acid Level 1.8 0.8-2.5 mmol/L Procalcitonin 0.66 H 0.05-0.5 ng/mL DIAGNOSTICS / RADIOLOGY RESULTS: Signed PATIENT: HI CHAMPAGNE MR#: [id number] : 1950 SEX: M AGE: 73 LOCATION: [facility] ORDER 2300 STATUS: ADM IN REPORT#: [id number] SERVICE 0600 REASON: PNA ORDERING PHYSICIAN: NITIN INGRAM NP PROCEDURE: CXR1VW - CHEST 1VW Exam Type: CHEST 1VW Clinical Information: PNA Comparison: None Findings: Ill-defined infiltrates of both lungs are seen consistent with bilateral pneumonia. The heart is large in size. The bony and soft tissue structures show no worrisome pathology. IMPRESSION: Findings consistent with pneumonia. Cardiomegaly. Follow-up is advised. DICTATED BY: RACHEL CRABTREE MD DATE: 06/02/24934 ELECTRONICALLY SIGNED BY: RACHEL CRABTREE MD DATE: 06/02/24937 PLAN Follow CV suregon recommendations follow nephrology recommendations NEURO: Minimize central acting medications as possible. Maintain fall precautions, adequate lighting during the day PULMONARY: Supplemental 02 as needed. Maintain aspiration precautions at all times Maintain o2 sats above 92% CARDIOVASCULAR: Follow hemodynamics. Vital signs per facility protocol cardiac monitoring GI & NUTRITION: Continue with nutritional support. Continue stool softeners and laxatives as needed. renal diet KIDNEYS & ELECTROLYTES: Strict monitoring of intake, output and overall fluid balance. Avoid nephrotoxic medications to the extent possible. Medications to be dosed according to renal function. Monitor electrolytes and replace as needed Peritoneal Dialysis at HS per neprology recs. ENDOCRINE: Maintain blood glucose between 100-180 at all times. Hypoglycemia protocol in place INFECTIOUS DISEASE: Trend temperature, WBC and procalcitonin level Follow cultures, deescalate antibiotics as soon as possible. Panculture if new onset fever Continue abx per ID ONCOLOGY/HEMATOLOGY/COAGULATION: Monitor for s/s of bleeding Monitor hemoglobin, coagulation studies as needed SKIN: Pressure ulcer prevention per facility protocol Specialty mattress ORTHO/REHAB: Continue PT/OT Prophylaxis: Continue GI and DVT prophylaxis Code Status: Full Resuscitation Disposition: TBD Other: I personally spent 40 minutes of critical care time in treatment of this p atient. This includes patient management, time at bedside, time reviewing tests, labs, appropriate images and studies, documentation, and patient care coordination. This time excludes separately billable procedures. EDGAR BAEZ [facility] Jun 02, 2024 14:26
--- NOTE | 2024-06-02 15:21 | PN ---
INFECTIOUS DISEASE PROGRESS NOTE Date of Service: Jun 02, 2024 SUBJECTIVE: This is a 73 year old male patient who was seen and examined at bedside in room 225. Patient is awake and alert. Patient with a Sternotomy abscess, s/p debridement day # 1. We will refer patient to [facility]. Patient's who is at bedside stated that she prefers [facility] in [place] due to they live in [place] and the rest of the family is from [place]. Patient is afebrile, temperature is 97.5 and a WBC of 9.3. Continues on cefepime and the vancomycin is on hold today due to el evated Vanco trough of 27.2. No other issues reported by nursing. PHYSICAL EXAM EYES: Anicteric. Pupils equal and reactive. HENT: No oral thrush seen, moist Oral mucosa. NECK: Supple, no JVD or thyromegaly. CHEST: Sternotomy abscess. LUNGS: Good air entry. No rales, no rhonchi. CARDIOVASCULAR: S1, S2 regular. No murmur heard. ABDOMEN: Soft, non tender, bowel sounds present, no organomegaly. Peritoneal catheter. CENTRAL NERVOUS SYSTEM: Awake, alert, oriented x 3. SKIN: No rashes, no swelling. LYMPHATICS: No peripheral lymphadenopathy. MUSCULOSKELETAL: No joint swelling, erythema or tenderness. EXTREMITIES: No cyanosis or clubbing. BACK: No deformity, no pressure ulcer. GENITOURINARY: No dysuria or hematuria. Vital Sign (Last 12 Hours) 06/02/24 06/02/24 06/02/24 07:00 08:00 11:00 Temp 97.5 97.5 Pulse 75 72 Resp 20 20 B/P (MAP) 138/80 163/87 Pulse Ox 98 95 100 O2 Delivery Room Air Room Air* Room Air O2 Flow Rate 0 FiO2 21 Intake & Output (last 24hrs) 06/01/24 06/01/24 06/02/24 15:00 23:00 07:00 Intake Total 135 ml Output Total 130 ml Balance 5 ml LABS: Laboratory: Test 06/02/24 10:54 06/02/24 04:43 06/02/24 04:09 06/01/24 03:25 Range/Units Whole Blood Glucose 217 H 70-110 MG/DL Bedside Glucose Comment Notified Nurse White Blood Count 9.3 4.8-10.8 K/uL Red Blood Count 3.12 L 4.50-6.20 MIL/uL Hemoglobin 8.8 L 14.0-18.0 g/dL Hematocrit 29.4 L 42-54 % Mean Corpuscular Volume 94.2 79-99 fL Mean Corpuscular Hemoglobin 28.2 27.0-33.0 pg Mean Corpuscular Hemoglobin Concent 29.9 L 32.0-36.0 g/dL Red Cell Distribution Width 14.1 11.0-15.5 % Platelet Count 323 130-400 K/uL Mean Platelet Volume 9.6 7.5-10.5 fL Immature Granulocyte % (Auto) 1.4 H 0-1 % Neutrophils (%) (Auto) 87.3 H 40.0-77.0 % Lymphocytes (%) (Auto) 8.3 L 21.0-51.0 % Monocytes (%) (Auto) 2.9 L 3.0-13.0 % Eosinophils (%) (Auto) 0.0 0.0-8.0 % Basophils (%) (Auto) 0.1 0.0-5.0 % Neutrophils # (Auto) 8.1 H 1.8-7.7 K/uL Lymphocytes # (Auto) 0.8 L 1.0-4.8 K/uL Monocytes # (Auto) 0.3 0.1-1.0 K/uL Eosinophils # (Auto) 0.00 0.00-0.70 K/uL Basophils # (Auto) 0.01 0.00-0.20 K/uL Absolute Immature Granulocyte (auto 0.13 0-1 K/uL Nucleated Red Blood Cells 0.0 0.0-0.19 % Sodium Level 132 L 136-145 mmol/L Potassium Level 4.8 3.5-5.1 mmol/L Chloride Level 96 L 101-111 mmol/L Carbon Dioxide Level 29 21-32 mmol/L Blood Urea Nitrogen 37 H 7-18 mg/dL Creatinine 5.3 H 0.5-1.3 mg/dL Glomerular Filtration Rate Calc 11 >90 mL/min Random Glucose 265 H 70-105 mg/dL Total Calcium 9.0 8.5-10.1 mg/dL Total Bilirubin 0.3 0.2-1.0 mg/dL Aspartate Amino Transf (AST/SGOT) 17 10-37 U/L Alanine Aminotransferase (ALT/SGPT) 9 L 12-78 U/L Alkaline Phosphatase 86 50-136 U/L Total Protein 6.1 6.0-8.3 g/dL Albumin 1.7 L 3.5-5.0 g/dL Thyroid Stimulating Hormone (TSH) 1.11 # 0.36-3.74 uIU/mL Vancomycin Level Trough 27.2 #*H 10.0-20.0 UG/ML Phosphorus Level 5.2 H 2.5-4.9 mg/dL Magnesium Level 2.10 1.80-2.40 mg/dL Test 05/31/24 16:29 Range/Units Lactic Acid Level 1.8 0.8-2.5 mmol/L Procalcitonin 0.66 H 0.05-0.5 ng/mL ASSESSMENT: Sternotomy abscess, s/p debridement. CAD with history of coronary artery bypass grafting. Leukocytosis. End-stage renal disease, on peritoneal dialysis. Anemia. Hypokalemia. Hypertension. Debility. PLAN: Continue cefepime IV. Vancomycin on hold due to elevated vanco trough. Continue GI prophylaxis. Continue pain management. Continue wound care. Continue peritoneal dialysis as recommended by hazmat cdl driver. We will follow up on the culture results. We will monitor electrolytes. This case was reviewed and discussed with my supervising physician and the above assessment and plan was formulated and agreed upon. ATTESTATION BY PHYSICIAN I have seen and examined the patient. I reviewed the documentation, medical decision making, and treatment plan as noted by the mid-level provider above. I agree with the findings and plan of care. MARTA TOBIN MD, [facility] Jun 02, 2024 15:21
--- NOTE | 2024-06-02 15:30 | NUR ---
chest dressing saturated with pinkish drainage changed dressing using 4x4 and paper tape
--- NOTE | 2024-06-02 15:44 | PN ---
NEPHROLOGY FOLLOWUP SUBJECTIVE: The patient offers no new complaints. OBJECTIVE: GENERAL: The patient is not in any acute distress. VITAL SIGNS: Blood pressure 163/87, respirations 20, pulse 70, temperature 97.5. LUNGS: Clear to auscultation. HEART: Normal cardiac sound. ABDOMEN: Soft, nondistended, nontender. EXTREMITIES: No edema. LABORATORY DATA: Sodium 132, potassium 4.8, BUN 37, creatinine 5.3, albumin of 1.7. ASSESSMENT: * End-stage renal disease. * Diabetes mellitus type 2 with nephropathy. * Hyponatremia with latest sodium level of 132 mEq/L. * Severe protein-calorie malnutrition with an albumin of 1.7. PLAN: Continue renal diet. Continue current medications. Peritoneal dialysis to continue. TID: [id number] RECEIPT: [id number]
--- NOTE | 2024-06-02 15:45 | NUR ---
Patient seen and evaluated. As per daughter, patient was home receiving HH services including OT/PT. Patient has had multiple admission due to sternal wound infection. Patient may benefit from aggressive rehab to achieve PLOF prior to CABG, currently receiving that at home. PT team to follow. Addendum: 06/02/24 at 1706 by JENNIFER DEMPSEY PT Amended: Links added.
--- NOTE | 2024-06-02 22:40 | OP ---
DATE OF PROCEDURE: 06/02/2024 The patient is a 73-year-old gentleman who underwent a CABG in the past, presented with a nonhealing wound, which was draining purulent material at the level of the thigh. The patient was taken to the operating room for debridement. PREOPERATIVE DIAGNOSIS: Draining sternum status post CABG. POSTOPERATIVE DIAGNOSIS: Draining sternum status post CABG. PROCEDURES PERFORMED: Incision, drainage and debridement and irrigation catheters. SURGEON: Nestor Mitchell MD CATERING STAFF MEMBER: Dr. Franco. ANESTHESIA: General. DISPOSITION: Stable. INDICATIONS: This patient underwent a CABG and now presents with ____ infection of the lower part of the wound. It was treated with a wound VAC. The patient ultimately healed his incision. He presents now 2 months later with some drainage from the lower part of the incision. CT scan does not demonstrate any air or any infection on the mediastinum; and therefore, the patient was brought for I and D. By the time of surgery, the lower part of the incision was re-excised and cleaned with a pulsatile lavage after debridement. Irrigation catheters were left in place. DESCRIPTION OF PROCEDURE IN DETAIL: With the patient in supine position after adequate induction of general endotracheal anesthesia, preoperative intravenous antibiotics, percutaneous arterial and venous lines, surgeon directed timeout, followed by excision of the lower part of the sternotomy and including soft tissues and skin. The sinus tract was taken down all the way to the sternum and the sternal edges were debrided with a curette. The 6 liters of irrigant with the pulse lavage was then utilized to cleanse the area and irrigation catheters were placed #10-[place] Asim. The ____ the bottom of the incision and secured in place with 2-0 silk. The wound was then copiously irrigated with antibiotic solution and closed in layers with #1 Vicryl and 3-0 Monocryl. The patient transferred to the recovery room in stable condition. TID: [id number] RECEIPT: [id number]
[2024-06-03] VITALS (7 sets, daily range): BP systolic 105–143; BP diastolic 61–86; PULSE 70–120; RESP 18–22; TEMP 97.5–98.9; O2SAT 98
[2024-06-03 06:12] LABS: ALBUMIN 1.8 g/dL (3.5-5.0); ASPARTATE AMINOTRANSFERASE 24 U/L (10-37); BILIRUBIN,TOTAL 0.2 mg/dL (0.2-1.0); CARBON DIOXIDE 25 mmol/L (21-32); CHLORIDE 96 mmol/L (101-111); GLOMERULAR FILTR. RATE CALC 12 mL/min (>90); GLUCOSE,RANDOM 142 mg/dL (70-105); POTASSIUM 4.3 mmol/L (3.5-5.1); SODIUM SERUM 134 mmol/L (136-145); TOTAL PROTEIN, SERUM 5.9 g/dL (6.0-8.3); UREA NITROGEN, BLOOD 39 mg/dL (7-18)
[2024-06-03 06:13] LABS: BASOPHILS # (AUTO) 0.03 K/uL (0.00-0.20); BASOPHILS % (AUTO) 0.2 % (0.0-5.0); EOSINOPHILS # (AUTO) 0.19 K/uL (0.00-0.70); EOSINOPHILS % (AUTO) 1.4 % (0.0-8.0); HEMATOCRIT 33.6 % (42-54); IMMATURE GRANULOCYTE ABSOLUTE 0.22 K/uL (0-1); LYMPHOCYTES # (AUTO) 1.8 K/uL (1.0-4.8); LYMPHOCYTES % (AUTO) 13.5 % (21.0-51.0); MEAN CORPUSCULAR HEMOGLOBIN 29.1 pg (27.0-33.0); MEAN CORPUSCULAR VOLUME 94.1 fL (79-99); MONOCYTES # (AUTO) 0.6 K/uL (0.1-1.0); MONOCYTES % (AUTO) 4.7 % (3.0-13.0); NEUTROPHILS # (AUTO) 10.5 K/uL (1.8-7.7); NEUTROPHILS % (AUTO) 78.6 % (40.0-77.0); PLATELET COUNT (AUTO) 145 K/uL (130-400); RED BLOOD CELL COUNT(AUTO) 3.57 MIL/uL (4.50-6.20); RED CELL DISTRIBUTION WIDTH 14.2 % (11.0-15.5); WHITE BLOOD COUNT (AUTO) 13.4 K/uL (4.8-10.8)
[2024-06-03 06:16] LABS: ALANINE AMINOTRANSFERASE < 6 U/L (12-78)
--- NOTE | 2024-06-03 14:01 | PN ---
[facility] PROGRESS NOTE Date Patient Seen: Jun 03, 2024 Time of Visit: 14:01 Supervising Physician:Xavier Hurtado MD Primary Care Physician: Dr. 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 He is awake alert and oriented x3. Hemodynamically stable afebrile heart rate in the 90s respiratory rate of 29 unlabored saturating 95% on room air. Peritoneal dialysis then overnight. Chest BELKYS output of 90 mL. WBCs trended slightly up today with 13.4 H&H is 10.4/33.6 with a platelet count of 145 K. sodium 134 potassium of 4.3 chloride 96 BUN 39 creatinine of five and GFR of 12 consistent with his ESRD. Continues with cefepime and vancomycin IV. Per case management pending LTAC. REVIEW OF SYSTEMS: General: No malaise or fever. Neurological: No fainting episodes or seizures. HEENT: No nasal congestion or nasal secretion. Respiratory: No cough, shortness of breath, or wheezing Cardiac: No chest pain or palpitations. Gastrointestinal: No vomiting or diarrhea. Genitourinary: No dysuria hematuria. Skin: No rashes or lesions. Hematological: No bruises or bleeding. Musculoskeletal: No joint pains or arthralgias. Psychiatric: No depression or panic attacks. PHYSICAL EXAM: GENERAL: Alert, weak, awake oriented x 3 HEENT: EOMI, Sclera non icteric, moist mucosa NECK: Supple, no JVD, trachea midline LUNGS: Diminished breath sounds bilaterally. No wheezes. BELKYS the chest wall. Betadine with saline irrigation to sternal wound HEART: Regular rate and rhythm. Normal S1 and S2, without murmurs ABD: Abdomen soft, nontender. Bowel sounds present EXT: No clubbing cyanosis or edema Skin: Sternotomy site erythema and purulent drainage. NEURO: Alert and oriented to person, follows commands . Vital Signs (last 8hr) Date Time Temp Pulse Resp B/P (MAP) Pulse Ox O2 Delivery O2 Flow Rate FiO2 06/03/24 11:00 97.5 97 20 128/86 99 Room Air 06/03/24 07:29 97.5 84 22 135/82 97 Room Air LABS: Hematology Labs: Test 06/03/24 05:10 Range/Units White Blood Count 13.4 H 4.8-10.8 K/uL Red Blood Count 3.57 L 4.50-6.20 MIL/uL Hemoglobin 10.4 L 14.0-18.0 g/dL Hematocrit 33.6 L 42-54 % Mean Corpuscular Volume 94.1 79-99 fL Mean Corpuscular Hemoglobin 29.1 27.0-33.0 pg Mean Corpuscular Hemoglobin Concent 31.0 L 32.0-36.0 g/dL Red Cell Distribution Width 14.2 11.0-15.5 % Platelet Count 145 # 130-400 K/uL Mean Platelet Volume 10.8 H 7.5-10.5 fL Immature Granulocyte % (Auto) 1.6 H 0-1 % Neutrophils (%) (Auto) 78.6 H 40.0-77.0 % Lymphocytes (%) (Auto) 13.5 L 21.0-51.0 % Monocytes (%) (Auto) 4.7 3.0-13.0 % Eosinophils (%) (Auto) 1.4 0.0-8.0 % Basophils (%) (Auto) 0.2 0.0-5.0 % Neutrophils # (Auto) 10.5 H 1.8-7.7 K/uL Lymphocytes # (Auto) 1.8 1.0-4.8 K/uL Monocytes # (Auto) 0.6 0.1-1.0 K/uL Eosinophils # (Auto) 0.19 0.00-0.70 K/uL Basophils # (Auto) 0.03 0.00-0.20 K/uL Absolute Immature Granulocyte (auto 0.22 0-1 K/uL Nucleated Red Blood Cells 0.0 0.0-0.19 % Chemistry Labs: Test 06/03/24 12:03 06/03/24 05:10 06/02/24 17:13 06/02/24 04:09 Range/Units Whole Blood Glucose 72 70-110 MG/DL Sodium Level 134 L 136-145 mmol/L Potassium Level 4.3 3.5-5.1 mmol/L Chloride Level 96 L 101-111 mmol/L Carbon Dioxide Level 25 21-32 mmol/L Blood Urea Nitrogen 39 H 7-18 mg/dL Creatinine 5.0 H 0.5-1.3 mg/dL Glomerular Filtration Rate Calc 12 >90 mL/min Random Glucose 142 H 70-105 mg/dL Total Calcium 9.0 8.5-10.1 mg/dL Total Bilirubin 0.2 0.2-1.0 mg/dL Aspartate Amino Transf (AST/SGOT) 24 10-37 U/L Alanine Aminotransferase (ALT/SGPT) < 6 L 12-78 U/L Alkaline Phosphatase 96 50-136 U/L Total Protein 5.9 L 6.0-8.3 g/dL Albumin 1.8 L 3.5-5.0 g/dL Bedside Glucose Comment Notified Nurse Thyroid Stimulating Hormone (TSH) 1.11 # 0.36-3.74 uIU/mL DIAGNOSTICS / RADIOLOGY RESULTS: [ ] PLAN Follow CV suregon recommendations follow nephrology recommendations Antibiotics per ID Monitor BELKYS drain Follow nephrology recommendation currently on peritoneal dialysis q.h.s.. Pending LTAC placement per case management NEURO: Minimize central acting medications as possible. Maintain fall precautions, adequate lighting during the day PULMONARY: Supplemental 02 as needed. Maintain aspiration precautions at all times Maintain o2 sats above 92% CARDIOVASCULAR: Follow hemodynamics. Vital signs per facility protocol cardiac monitoring GI & NUTRITION: Continue with nutritional support. Continue stool softeners and laxatives as needed. renal diet KIDNEYS & ELECTROLYTES: Strict monitoring of intake, output and overall fluid balance. Avoid nephrotoxic medications to the extent possible. Medications to be dosed according to renal function. Monitor electrolytes and replace as needed Peritoneal Dialysis at HS per neprology recs. ENDOCRINE: Maintain blood glucose between 100-180 at all times. Hypoglycemia protocol in place INFECTIOUS DISEASE: Trend temperature, WBC and procalcitonin level Follow cultures, deescalate antibiotics as soon as possible. Panculture if new onset fever Continue abx per ID ONCOLOGY/HEMATOLOGY/COAGULATION: Monitor for s/s of bleeding Monitor hemoglobin, coagulation studies as needed SKIN: Pressure ulcer prevention per facility protocol Specialty mattress ORTHO/REHAB: Continue PT/OT Prophylaxis: Continue GI and DVT prophylaxis Code Status: Full Resuscitation Disposition: TBD Other: I personally spent 40 minutes of critical care time in treatment of this patient. This includes patient management, time at bedside, time reviewing tests, labs, appropriate images and studies, documentation, and patient care coordination. This time excludes separately billable procedures. EDGAR BAEZ Jun 03, 2024 14:01
--- NOTE | 2024-06-03 16:38 | PN ---
INFECTIOUS DISEASE PROGRESS NOTE Date of Service: Jun 03, 2024 SUBJECTIVE: This is a 73 year old male patient who was seen and examined at bedside in room 225. During rounding today patient was being spoon fed his lunch by his . Patient has good appetite. No episodes of emesis reported. Nursing reported having to frequently change the sternotomy dressing due to keeps draining. Very small amount of serosanguineous drainage observe in the BELKYS drain. Patient is s/p debridement on 06/01/2024. No fever, temperature 97.6 and the WBC is 13.4. Patient continues on cefepime and the vancomycin per pharmacy protocol. Patient is being referred to [facility] in [place]. We will continue to follow patient's care. PHYSICAL EXAM EYES: Anicteric. Pupils equal and reactive. HENT: No oral thrush seen, moist Oral mucosa. NECK: Supple, no JVD or thyromegaly. CHEST: Sternotomy abscess, status post debridement. LUNGS: Good air entry. No rales, no rhonchi. CARDIOVASCULAR: S1, S2 regular. No murmur heard. ABDOMEN: Soft, non tender, bowel sounds present, no organomegaly. Peritoneal catheter. CENTRAL NERVOUS SYSTEM: Awake, alert, oriented x 3. SKIN: No rashes, no swelling. LYMPHATICS: No peripheral lymphadenopathy. MUSCULOSKELETAL: No joint swelling, erythema or tenderness. EXTREMITIES: No cyanosis or clubbing. BACK: No deformity, no pressure ulcer. GENITOURINARY: No dysuria or hematuria. Vital Sign (Last 12 Hours) 06/03/24 06/03/24 06/03/24 07:29 11:00 15:30 Temp 97.5 97.5 98.1 Pulse 84 97 94 Resp 22 20 20 B/P (MAP) 135/82 128/86 126/84 Pulse Ox 97 99 95 O2 Delivery Room Air Room Air Room Air Intake & Output (last 24hrs) 06/02/24 06/02/24 06/03/24 15:00 23:00 07:00 Intake Total 125 ml Output Total 30 ml 30 ml 30 ml Balance -30 ml 95 ml -30 ml LABS: Laboratory: Test 06/03/24 15:52 06/03/24 05:10 06/02/24 17:13 06/02/24 04:09 Range/Units Whole Blood Glucose 62 L 70-110 MG/DL White Blood Count 13.4 H 4.8-10.8 K/uL Red Blood Count 3.57 L 4.50-6.20 MIL/uL Hemoglobin 10.4 L 14.0-18.0 g/dL Hematocrit 33.6 L 42-54 % Mean Corpuscular Volume 94.1 79-99 fL Mean Corpuscular Hemoglobin 29.1 27.0-33.0 pg Mean Corpuscular Hemoglobin Concent 31.0 L 32.0-36.0 g/dL Red Cell Distribution Width 14.2 11.0-15.5 % Platelet Count 145 # 130-400 K/uL Mean Platelet Volume 10.8 H 7.5-10.5 fL Immature Granulocyte % (Auto) 1.6 H 0-1 % Neutrophils (%) (Auto) 78.6 H 40.0-77.0 % Lymphocytes (%) (Auto) 13.5 L 21.0-51.0 % Monocytes (%) (Auto) 4.7 3.0-13.0 % Eosinophils (%) (Auto) 1.4 0.0-8.0 % Basophils (%) (Auto) 0.2 0.0-5.0 % Neutrophils # (Auto) 10.5 H 1.8-7.7 K/uL Lymphocytes # (Auto) 1.8 1.0-4.8 K/uL Monocytes # (Auto) 0.6 0.1-1.0 K/uL Eosinophils # (Auto) 0.19 0.00-0.70 K/uL Basophils # (Auto) 0.03 0.00-0.20 K/uL Absolute Immature Granulocyte (auto 0.22 0-1 K/uL Nucleated Red Blood Cells 0.0 0.0-0.19 % Sodium Level 134 L 136-145 mmol/L Potassium Level 4.3 3.5-5.1 mmol/L Chloride Level 96 L 101-111 mmol/L Carbon Dioxide Level 25 21-32 mmol/L Blood Urea Nitrogen 39 H 7-18 mg/dL Creatinine 5.0 H 0.5-1.3 mg/dL Glomerular Filtration Rate Calc 12 >90 mL/min Random Glucose 142 H 70-105 mg/dL Total Calcium 9.0 8.5-10.1 mg/dL Total Bilirubin 0.2 0.2-1.0 mg/dL Aspartate Amino Transf (AST/SGOT) 24 10-37 U/L Alanine Aminotransferase (ALT/SGPT) < 6 L 12-78 U/L Alkaline Phosphatase 96 50-136 U/L Total Protein 5.9 L 6.0-8.3 g/dL Albumin 1.8 L 3.5-5.0 g/dL Bedside Glucose Comment Notified Nurse Thyroid Stimulating Hormone (TSH) 1.11 # 0.36-3.74 uIU/mL Vancomycin Level Trough 27.2 #*H 10.0-20.0 UG/ML ASSESSMENT: Sternotomy abscess, s/p debridement on 06/01/2024. CAD with history of coronary artery bypass grafting. Leukocytosis. End-stage renal disease, on peritoneal dialysis. Anemia. Hypokalemia. Hypertension. Debility. PLAN: Continue cefepime IV. Vancomycin per pharmacy protocol. Continue wound care. Continue pain management. Continue peritoneal dialysis as recommended by [employer]. We will follow up on the culture results. We will monitor electrolytes. This case was reviewed and discussed with my supervising physician and the above assessment and plan was formulated and agreed upon. ATTESTATION BY PHYSICIAN I have seen and examined the patient. I reviewed the documentation, medical decision making, and treatment plan as noted by the mid-level provider above. I agree with the findings and plan of care. MARTA TOBIN MD, MIRTA L [facility] Jun 03, 2024 16:38
--- NOTE | 2024-06-03 16:42 | PN ---
PROGRESS NOTE Date of Service: Jun 03, 2024 Time of Service: 16:39 SUBJECTIVE: No new concerns, no acute events reported in the last 24hours.Tolerating PD treatments REVIEW OF SYSTEMS CONSTITUTIONAL: Denies fever, chills, or fatigue. HEAD/FACE: No signs of trauma. EENT: Denies eye pain, blurred vision, double vision, or light sensitivity. RESPIRATORY: Denies shortness of breath, cough, wheezing CARDIOVASCULAR: Denies chest pain, palpitation, syncope GASTROINTESTINAL/ABDOMINAL: Denies abdominal pain, constipation, diarrhea, nausea or vomiting GENITOURINARY: Denies dysuria or hematuria. MUSCULOSKELETAL: Denies joint pain, tenderness, or trauma. INTEGUMENTARY: Denies rash or itchiness NEUROLOGICAL/PSYCH: Denies anxiety, depression, heat or cold intolerance. PHYSICAL EXAM EYES: Anicteric. Pupils equal and reactive. HENT: No oral thrush seen, moist Oral mucosa NECK: Supple, no JVD or thyromegaly. LUNGS: Good air entry. No rales, no rhonchi. CARDIOVASCULAR: S1, S2 regular. No murmur heard. ABDOMEN: Soft, non tender, bowel sounds present, no organomegaly CENTRAL NERVOUS SYSTEM: Awake, alert, oriented x 3. No focal deficits. SKIN: No rashes, no swelling. LYMPHATICS: No peripheral lymphadenopathy MUSCULOSKELETAL: No joint swelling, erythema or tenderness. EXTREMITIES: No cyanosis or clubbing BACK: No deformity, no pressure ulcer. GENITOURINARY: No dysuria or hematuria Vital Signs (last 8hr) Date Time Temp Pulse Resp B/P (MAP) Pulse Ox O2 Delivery O2 Flow Rate FiO2 06/03/24 15:30 98.1 94 20 126/84 95 Room Air 06/03/24 11:00 97.5 97 20 128/86 99 Room Air LABS: Laboratory: Test 06/03/24 16:24 06/03/24 05:10 06/02/24 17:13 06/02/24 04:09 Range/Units Whole Blood Glucose 51 L 70-110 MG/DL White Blood Count 13.4 H 4.8-10.8 K/uL Red Blood Count 3.57 L 4.50-6.20 MIL/uL Hemoglobin 10.4 L 14.0-18.0 g/dL Hematocrit 33.6 L 42-54 % Mean Corpuscular Volume 94.1 79-99 fL Mean Corpuscular Hemoglobin 29.1 27.0-33.0 pg Mean Corpuscular Hemoglobin Concent 31.0 L 32.0-36.0 g/dL Red Cell Distribution Width 14.2 11.0-15.5 % Platelet Count 145 # 130-400 K/uL Mean Platelet Volume 10.8 H 7.5-10.5 fL Immature Granulocyte % (Auto) 1.6 H 0-1 % Neutrophils (%) (Auto) 78.6 H 40.0-77.0 % Lymphocytes (%) (Auto) 13.5 L 21.0-51.0 % Monocytes (%) (Auto) 4.7 3.0-13.0 % Eosinophils (%) (Auto) 1.4 0.0-8.0 % Basophils (%) (Auto) 0.2 0.0-5.0 % Neutrophils # (Auto) 10.5 H 1.8-7.7 K/uL Lymphocytes # (Auto) 1.8 1.0-4.8 K/uL Monocytes # (Auto) 0.6 0.1-1.0 K/uL Eosinophils # (Auto) 0.19 0.00-0.70 K/uL Basophils # (Auto) 0.03 0.00-0.20 K/uL Absolute Immature Granulocyte (auto 0.22 0-1 K/uL Nucleated Red Blood Cells 0.0 0.0-0.19 % Sodium Level 134 L 136-145 mmol/L Potassium Level 4.3 3.5-5.1 mmol/L Chloride Level 96 L 101-111 mmol/L Carbon Dioxide Level 25 21-32 mmol/L Blood Urea Nitrogen 39 H 7-18 mg/dL Creatinine 5.0 H 0.5-1.3 mg/dL Glomerular Filtration Rate Calc 12 >90 mL/min Random Glucose 142 H 70-105 mg/dL Total Calcium 9.0 8.5-10.1 mg/dL Total Bilirubin 0.2 0.2-1.0 mg/dL Aspartate Amino Transf (AST/SGOT) 24 10-37 U/L Alanine Aminotransferase (ALT/SGPT) < 6 L 12-78 U/L Alkaline Phosphatase 96 50-136 U/L Total Protein 5.9 L 6.0-8.3 g/dL Albumin 1.8 L 3.5-5.0 g/dL Bedside Glucose Comment Notified Nurse Thyroid Stimulating Hormone (TSH) 1.11 # 0.36-3.74 uIU/mL Vancomycin Level Trough 27.2 #*H 10.0-20.0 UG/ML DIAGNOSTICS / RADIOLOGY: CT CHEST W/O CONTRAST HISTORY: Recurrent sternotomy infection COMPARISON: 10/24/2024 TECHNIQUE: Multiple sequential axial images of the chest were obtained from the thoracic inlet through upper abdomen. Patient was not given contrast through intravenous route. FINDINGS: Tiny bilateral pleural effusions are seen. Left lower lung subsegmental atelectasis changes are seen suggestive calcification. Poststernotomy changes are seen. Coronary arterial calcifications are seen. No drainable abscess collection. Mild left lung pulmonary infiltrates are seen. There is dextroscoliosis. There is no evidence of pneumothorax. There are normal size mediastinal and hilar lymph nodes. The heart is not enlarged. Degenerative changes of the thoracolumbar spine are present. There is no evidence of adrenal nodule. There is tiny ascites. IMPRESSION: 1. Tiny bilateral pleural effusions with left lower lung subsegmental atelectasis changes. No drainable abscess collection is seen. CT was performed with one or more following dose reduction techniques: automated exposure control, adjustment of the mA and kv according to patient's size, or use of a iterative reconstruction technique. ASSESSMENT: End-stage renal disease. Diabetes mellitus type 2 with nephropathy. Hypertension with renal manifestation. Anemia and chronic kidney disease. Hypokalemia. Hyponatremia Severe protein-calorie malnutrition with an albumin of 1.7. Infected surgical wound in the sternal area. PLAN: To continue present plan of care. Monitor Nutritional status We will continue with peritoneal dialysis Monitor patients BP Monitor Electrolytes replenish as per protocol Continue antimicrobials KELVIN CONTRERAS AGPCBONIFACIO Jun 03, 2024 16:42
[2024-06-03] MEDS: DEXTROSE 50%-WATER 50 ML DISP.SYRIN IV ONE (16:48)
--- NOTE | 2024-06-03 21:28 | PN ---
SUBJECTIVE: No complaints. Status post ____ debridement and irrigation on 06/01, coursing with postoperative day #2. OBJECTIVE: GENERAL: Awake, alert, afebrile, neurologically intact. VITAL SIGNS: Stable as recorded in medical record. CHEST: Sternum is stable. ASSESSMENT: * Irrigation catheters are in place. ____ an hour. * Infection. Continue IV antibiotics pending cultures. * Status post coronary artery bypass graft. Aspirin 81 mg, metoprolol 12.5 mg twice a day. * Fluid overload. Lasix 20 mg twice a day. * Dyslipidemia. Lipitor 40 mg once a day. PLAN: As outlined. OT. Discharge to rehab. TID: [id number] RECEIPT: [id number]
[2024-06-04] VITALS (10 sets, daily range): BP systolic 77–136; BP diastolic 40–77; PULSE 78–112; RESP 18; TEMP 98–98.9; O2SAT 95–96
[2024-06-04 04:03] LABS: BASOPHILS # (AUTO) 0.03 K/uL (0.00-0.20); BASOPHILS % (AUTO) 0.2 % (0.0-5.0); EOSINOPHILS # (AUTO) 0.12 K/uL (0.00-0.70); EOSINOPHILS % (AUTO) 0.7 % (0.0-8.0); HEMATOCRIT 28.5 % (42-54); LYMPHOCYTES # (AUTO) 0.9 K/uL (1.0-4.8); LYMPHOCYTES % (AUTO) 5.5 % (21.0-51.0); MEAN CORPUSCULAR HEMOGLOBIN 28.9 pg (27.0-33.0); MEAN CORPUSCULAR HGB CONC 30.9 g/dL (32.0-36.0); MEAN CORPUSCULAR VOLUME 93.4 fL (79-99); MONOCYTES # (AUTO) 0.8 K/uL (0.1-1.0); MONOCYTES % (AUTO) 4.8 % (3.0-13.0); NEUTROPHILS # (AUTO) 14.2 K/uL (1.8-7.7); NEUTROPHILS % (AUTO) 87.6 % (40.0-77.0); PLATELET COUNT (AUTO) 334 K/uL (130-400); RED BLOOD CELL COUNT(AUTO) 3.05 MIL/uL (4.50-6.20); RED CELL DISTRIBUTION WIDTH 14.5 % (11.0-15.5); WHITE BLOOD COUNT (AUTO) 16.2 K/uL (4.8-10.8)
[2024-06-04 04:14] LABS: CREATININE 5.4 mg/dL (0.5-1.3); POTASSIUM 3.6 mmol/L (3.5-5.1)
--- NOTE | 2024-06-04 08:30 | HMCIMG ---
Exam Type: CHEST 1VW Clinical Information: pneumonia Comparison: June 03, 2024 Findings: Pulmonary pattern is as before. No worrisome interval changes have taken place. Impression: Stable exam.
--- NOTE | 2024-06-04 09:16 | HMCIMG ---
Exam Type: CHEST 1VW Clinical Information: pneumonia Comparison: None Findings: Pulmonary pattern is as before. No worrisome interval changes have taken place. Impression: Stable exam.
--- NOTE | 2024-06-04 11:40 | PN ---
[facility] PROGRESS NOTE Date Patient Seen: Jun 04, 2024 Time of Visit: 11:40 Supervising Physician: Xavier Hurtado MD Primary Care Physician: Dr. Wright Outpatient Specialists: [ ] Inpatient Consults: CTVS, Nephrology, ID PROBLEM LIST: Metabolic encephalopathy POA, resolved Infected sternotomy wound/chest wall cellulitis POA s/p debridement 06/01/24 Sternal seroma Coronary artery disease s/p CABG on 03/2023 Hypertension Diabetes mellitus with hyperglycemia and nephropathy End Stage Renal Disease on peritoneal dialysis Bilateral pneumonia left greater than right bacterial pneumonia Hypokalemia Functional quadriplegic Anemia 2/2 chronic kidney disease Recurrent hospitalization due to multiple complications after surgical procedure Allergy to penicillin tolerating cefepime INTERVAL HISTORY: The Patient is S/P Sternotomy abscess debridement day # 3. He is awake alert and oriented x3. He has been having some episodes of hypoglycemia. We will stop Lantus. WBCs 50-68.2 and H&H 8.9/28.5 antibiotics has been changed per ID from cefepime to Zosyn. On chemistries sodium one four potassium 3.6 chloride 96 BUN 41 creatinine of 5.4 and GFR of 11 consistent with his ESRD. On ABG pH of 7.40 pCO2 of 38 PO2 of 75.2 bicarb 22.8 and O2 saturation 93.4. Pending LTAC placement. Chest x-ray with improvement. REVIEW OF SYSTEMS: General: Yes for GBW Neurological: No fainting episodes or seizures. HEENT: No nasal congestion or nasal secretion. Respiratory: No cough, shortness of breath, or wheezing Cardiac: No chest pain or palpitations. Gastrointestinal: No vomiting or diarrhea. Genitourinary: No dysuria hematuria. Skin: No rashes or lesions. Hematological: No bruises or bleeding. Musculoskeletal: No joint pains or arthralgias. Psychiatric: No depression or panic attacks. PHYSICAL EXAM: GENERAL: Alert, weak, awake oriented x 3 HEENT: EOMI, Sclera non icteric, moist mucosa NECK: Supple, no JVD, trachea midline LUNGS: Diminished breath sounds bilaterally. No wheezes. BELKYS the chest wall. Betadine with saline irrigation to sternal wound HEART: Regular rate and rhythm. Normal S1 and S2, without murmurs ABD: Abdomen soft, nontender. Bowel sounds present EXT: No clubbing cyanosis or edema Skin: Sternotomy site erythema and purulent drainage. NEURO: Alert and oriented to person, follows commands . Vital Signs (last 8hr) Date Time Temp Pulse Resp B/P (MAP) Pulse Ox O2 Delivery O2 Flow Rate FiO2 06/04/24 08:13 77/40 06/04/24 07:30 98.1 93 18 78/63 96 Room Air 06/04/24 04:40 99.0 94 18 136/50 96 Room Air LABS: Hematology Labs: Test 06/04/24 03:20 Range/Units White Blood Count 16.2 H 4.8-10.8 K/uL Red Blood Count 3.05 L 4.50-6.20 MIL/uL Hemoglobin 8.8 L 14.0-18.0 g/dL Hematocrit 28.5 L 42-54 % Mean Corpuscular Volume 93.4 79-99 fL Mean Corpuscular Hemoglobin 28.9 27.0-33.0 pg Mean Corpuscular Hemoglobin Concent 30.9 L 32.0-36.0 g/dL Red Cell Distribution Width 14.5 11.0-15.5 % Platelet Count 334 # 130-400 K/uL Mean Platelet Volume 9.7 7.5-10.5 fL Immature Granulocyte % (Auto) 1.2 H 0-1 % Neutrophils (%) (Auto) 87.6 H 40.0-77.0 % Lymphocytes (%) (Auto) 5.5 L 21.0-51.0 % Monocytes (%) (Auto) 4.8 3.0-13.0 % Eosinophils (%) (Auto) 0.7 0.0-8.0 % Basophils (%) (Auto) 0.2 0.0-5.0 % Neutrophils # (Auto) 14.2 H 1.8-7.7 K/uL Lymphocytes # (Auto) 0.9 L 1.0-4.8 K/uL Monocytes # (Auto) 0.8 0.1-1.0 K/uL Eosinophils # (Auto) 0.12 0.00-0.70 K/uL Basophils # (Auto) 0.03 0.00-0.20 K/uL Absolute Immature Granulocyte (auto 0.20 0-1 K/uL Nucleated Red Blood Cells 0.0 0.0-0.19 % Chemistry Labs: Test 06/04/24 11:20 06/04/24 03:20 06/03/24 08:20 06/03/24 05:10 Range/Units Whole Blood Glucose 45 #*L 70-110 MG/DL Bedside Glucose Comment Notified Nurse Sodium Level 134 L 136-145 mmol/L Potassium Level 3.6 3.5-5.1 mmol/L Chloride Level 96 L 101-111 mmol/L Carbon Dioxide Level 29 21-32 mmol/L Blood Urea Nitrogen 41 H 7-18 mg/dL Creatinine 5.4 H 0.5-1.3 mg/dL Glomerular Filtration Rate Calc 11 >90 mL/min Random Glucose 249 #H 70-105 mg/dL Total Calcium 9.0 8.5-10.1 mg/dL Cortisol AM Sample 5.8 L 6.2-19.4 ug/dL Total Bilirubin 0.2 0.2-1.0 mg/dL Aspartate Amino Transf (AST/SGOT) 24 10-37 U/L Alanine Aminotransferase (ALT/SGPT) < 6 L 12-78 U/L Alkaline Phosphatase 96 50-136 U/L Total Protein 5.9 L 6.0-8.3 g/dL Albumin 1.8 L 3.5-5.0 g/dL DIAGNOSTICS / RADIOLOGY RESULTS: [ ]PATIENT: HI CHAMPAGNE MR#: [id number] : 1950 SEX: M AGE: 73 LOCATION: 2DH ORDER 2300 STATUS: ADM IN REPORT#: [id number] SERVICE 0600 REASON: pneumonia ORDERING PHYSICIAN: EDGAR BAEZ PROCEDURE: CXR1VW - CHEST 1VW Exam Type: CHEST 1VW Clinical Information: pneumonia Comparison: June 03, 2024 Findings: Pulmonary pattern is as before. No worrisome interval changes have taken place. Impression: Stable exam. DICTATED BY: RACHEL CRABTREE MD DATE: 06/04/24826 ELECTRONICALLY SIGNED BY: RACHEL CRABTREE MD DATE: 06/04/24829 PLAN Follow CV suregon recommendations follow nephrology recommendations Antibiotics per ID Monitor BELKYS drain Follow nephrology recommendation currently on peritoneal dialysis q.h.s.. Pending LTAC placement per case management NEURO: Minimize central acting medications as possible. Maintain fall precautions, adequate lighting during the day PULMONARY: Supplemental 02 as needed. Maintain aspiration precautions at all times Maintain o2 sats above 92% CARDIOVASCULAR: Follow hemodynamics. Vital signs per facility protocol cardiac monitoring GI & NUTRITION: Continue with nutritional support. Continue stool softeners and laxatives as needed. renal diet KIDNEYS & ELECTROLYTES: Strict monitoring of intake, output and overall fluid balance. Avoid nephrotoxic medications to the extent possible. Medications to be dosed according to renal function. Monitor electrolytes and replace as needed Peritoneal Dialysis at HS per neprology recs. ENDOCRINE: Maintain blood glucose between 100-180 at all times. Hypoglycemia protocol in place INFECTIOUS DISEASE: Trend temperature, WBC and procalcitonin level Follow cultures, deescalate antibiotics as soon as possible. Panculture if new onset fever Continue abx per ID ONCOLOGY/HEMATOLOGY/COAGULATION: Monitor for s/s of bleeding Monitor hemoglobin, coagulation studies as needed SKIN: Pressure ulcer prevention per facility protocol Specialty mattress ORTHO/REHAB: Continue PT/OT Prophylaxis: Continue GI and DVT prophylaxis Code Status: Full Resuscitation Disposition: TBD Other: I personally spent 40 minutes of critical care time in treatment of this patient. This includes patient management, time at bedside, time reviewing tests, labs, appropriate images and studies, documentation, and patient care coordination. This time excludes separately billable procedures. EDGAR BAEZ Jun 04, 2024 11:40
[2024-06-04] MEDS: ZOSYN 3.375GM +NS 50ML IV SCH (13:10)
[2024-06-04] MEDS: DEXTROSE 50%-WATER 50 ML DISP.SYRIN IV ONE ×2 (13:17→16:34)
[2024-06-04 13:40] LABS: ABG BASE EXCESS -1.7 mmol/L (-2.0-3.0); ABG HCO3 22.8 mmol/L (21.0-28.0); ABG OXYGEN SATURATION 93.4 % (94.0-98.0); ABG PCO2 38 mmHg (35-48); ABG PH 7.402 (7.350-7.450); CARBON MONOXIDE 0 % (0.5-1.5); DEVICE COMMENT LR IMELDA; HHb 6.6; PO2, ARTERIAL BG 75.2 mmHg (83.0-108.0); VENT MODE, BG RA (ROOM AIR)
--- NOTE | 2024-06-04 14:48 | NUR ---
[facility] Consult: Patient assessed by wound healing team. See wound assessment. Assessment and recommendations provided to primary nurse. Education provided. Addendum: 06/05/24 at 1035 by JOSE L MARROQUIN RN RN/ Amended: Links added.
[2024-06-04] MEDS: SODIUM CL 4MEQ/ML 30ML 154 MEQ in DEXTROSE 10%-WATER 961.5 ML IV SCH (16:34)
--- NOTE | 2024-06-04 16:55 | NUR ---
0830: RE CHECK BP 77/40, ASYMPTOMATIC, GIVEN SCHEDULED MEDS. 0930: BP 105/46. 1130: BLOOD SUGAR 45, PATIENT "TWITCHING" RIGHT ARM, MEDICATED WITH D50 ONE AMP IV. ALSO GIVEN APPLE JUICE WITH SUGAR. RESPONDS TO VERBAL COMMANDS. 1156: RE CHECK BLOOD SUGAR 164, EATING [place] FRIES, DAUGHTER BROUGHT IN. 1330: REFUSED PHYSICAL THERAPY TREATMENT, STATES FEELS TIRED. 1545: BLOOD SUGAR 49, GIVEN ONE AMP OF D50 IV, NOTED TWITCHING TO RIGHT ARM AND LEFT ARM. INFORMED BONIFACIO HERNÁNDEZ. ORDERS: CT HEAD STAT AND IV FLUIDS OF D10 PLUS NaCL AT 25 CC/HR. UPDATED PATIENT'S SPOUSE, IRENE. 1611: RE CHECK BLOOD SUGAR 161.
--- NOTE | 2024-06-04 18:19 | HMCIMG ---
CT HEAD WITHOUT CONTRAST INDICATION: Twitching of right arm and had TECHNIQUE: Noncontrast axial helical CT images from the vertex through the skull base using 5 mm slice thickness without contrast material. Coronal and sagittal reconstructions were also included. Dose reduction techniques was used using integrated, automated and adaptive dose reduction exposure control. CT was performed with one or more of the following dose reduction techniques: Automated exposure control, adjustment of the mA and/or kV according to patient size, or use of iterative reconstruction technique. COMPARISON: 03/26/2024 FINDINGS: Scattered and coalescent subcortical and periventricular white matter low attenuating areas likely represent residual of chronic small vessel arteriopathy and/or remote vascular insult. Generalized mild cerebral cortical atrophy is present.. No evidence for abnormal extra-axial fluid collections or masses. The ventricles and sulci are normal in size and configuration. No evidence for intracranial parenchymal, epidural, or subdural hemorrhage, mass effect or midline shift. The leyva-white matter differentiation is well preserved. No secondary evidence to suggest acute ischemia. Mild calcific plaque is present along the mtz of the cavernous segments of both internal carotid arteries, including mild along the mtz of both vertebral arteries at the level of the foramen magnum. The brainstem and cerebellum appear normal. The visualized orbits appear unremarkable. The visible paranasal sinuses and mastoid air cells are clear. The calvarium appears normal. IMPRESSION: Chronic white matter ischemic changes, mild brain atrophy, and arteriosclerotic disease as described, without acute component.
--- NOTE | 2024-06-04 19:52 | NUR ---
1745: TAKEN TO CT SCAN OF HEAD WITHOUT CONTRAST. 181: RESTING COMFORTABLY. 190: AWAKE AND WATCHING TV. SPOUSE AT BEDSIDE.
--- NOTE | 2024-06-04 20:39 | PN ---
INFECTIOUS DISEASE PROGRESS NOTE Date of Service: Jun 04, 2024 SUBJECTIVE: This is a 73 year old male patient who was seen and examined at bedside in room 225. Patient is s/p debridement of sternotomy abscess on 06/01/2024. Patient's WBC went up to 16.3 today. Observe patient with coughing episodes. We will obtain sputum cultures. No reports of fever, temperature is 98.1. We will discontinue cefepime and start Zosyn IV every 12 hours and continue vancomycin per pharmacy protocol. present at bedside. Patient was referred to [facility] in [place] and pending insurance authorization. We will continue to follow patient's care. PHYSICAL EXAM EYES: Anicteric. Pupils equal and reactive. HENT: No oral thrush seen, moist Oral mucosa. NECK: Supple, no JVD or thyromegaly. CHEST: Sternotomy abscess, status post debridement. LUNGS: Good air entry. No rales, no rhonchi. CARDIOVASCULAR: S1, S2 regular. No murmur heard. ABDOMEN: Soft, non tender, bowel sounds present, no organomegaly. Peritoneal catheter. CENTRAL NERVOUS SYSTEM: Awake, alert, oriented x 3. SKIN: No rashes, no swelling. LYMPHATICS: No peripheral lymphadenopathy. MUSCULOSKELETAL: No joint swelling, erythema or tenderness. EXTREMITIES: No cyanosis or clubbing. BACK: No deformity, no pressure ulcer. GENITOURINARY: No dysuria or hematuria. Vital Sign (Last 12 Hours) 06/04/24 06/04/24 06/04/24 11:39 15:49 19:33 Temp 98.2 98.1 98.6 Pulse 78 89 96 Resp 18 18 18 B/P (MAP) 104/60 101/51 120/77 Pulse Ox 97 93 95 O2 Delivery Room Air Room Air Room Air Intake & Output (last 24hrs) 06/03/24 06/03/24 06/04/24 15:00 23:00 07:00 Intake Total 480 ml 240 ml Balance 480 ml 240 ml LABS: Laboratory: Test 06/04/24 20:15 06/04/24 15:36 06/04/24 13:38 06/04/24 03:20 Range/Units Whole Blood Glucose 148 H 70-110 MG/DL Bedside Glucose Comment Notified Nurse Blood Gas Specimen Type Arterial Arterial Blood pH 7.402 7.350-7.450 Arterial Blood Partial Pressure CO2 38 35-48 mmHg Arterial Blood Partial Pressure O2 75.2 L 83.0-108.0 mmHg Arterial Blood HCO3 22.8 21.0-28.0 mmol/L Arterial Blood Oxygen Saturation 93.4 L 94.0-98.0 % Arterial Blood Base Excess -1.7 -2.0-3.0 mmol/L Hemoglobin (Blood Gas) 9.1 L 13.5-17.5 g/dL Sodium (Blood Gas) 132 L 136-145 MMOL/L Bedside Potassium (Blood Gas) 4.0 3.4-4.5 MMOL/L Bedside Chloride (Blood Gas) 98 98-107 MMOL/L Bedside Glucose (Blood Gas) 96 H 65-95 MG/DL Bedside Ionized Calcium (Blood Gas) 1.15 1.15-1.33 MMOL/L Bedside Lactic Acid (Blood Gas) 0.85 H 0.36-0.75 MMOL/L Blood Gas Temperature 37.0 35.5-37.0 CELSIUS Blood Gas Vent Mode RA ROOM AIR FiO2 21.0 % Blood Gas Specimen Comment LR NOEL White Blood Count 16.2 H 4.8-10.8 K/uL Red Blood Count 3.05 L 4.50-6.20 MIL/uL Hemoglobin 8.8 L 14.0-18.0 g/dL Hematocrit 28.5 L 42-54 % Mean Corpuscular Volume 93.4 79-99 fL Mean Corpuscular Hemoglobin 28.9 27.0-33.0 pg Mean Corpuscular Hemoglobin Concent 30.9 L 32.0-36.0 g/dL Red Cell Distribution Width 14.5 11.0-15.5 % Platelet Count 334 # 130-400 K/uL Mean Platelet Volume 9.7 7.5-10.5 fL Immature Granulocyte % (Auto) 1.2 H 0-1 % Neutrophils (%) (Auto) 87.6 H 40.0-77.0 % Lymphocytes (%) (Auto) 5.5 L 21.0-51.0 % Monocytes (%) (Auto) 4.8 3.0-13.0 % Eosinophils (%) (Auto) 0.7 0.0-8.0 % Basophils (%) (Auto) 0.2 0.0-5.0 % Neutrophils # (Auto) 14.2 H 1.8-7.7 K/uL Lymphocytes # (Auto) 0.9 L 1.0-4.8 K/uL Monocytes # (Auto) 0.8 0.1-1.0 K/uL Eosinophils # (Auto) 0.12 0.00-0.70 K/uL Basophils # (Auto) 0.03 0.00-0.20 K/uL Absolute Immature Granulocyte (auto 0.20 0-1 K/uL Nucleated Red Blood Cells 0.0 0.0-0.19 % Sodium Level 134 L 136-145 mmol/L Potassium Level 3.6 3.5-5.1 mmol/L Chloride Level 96 L 101-111 mmol/L Carbon Dioxide Level 29 21-32 mmol/L Blood Urea Nitrogen 41 H 7-18 mg/dL Creatinine 5.4 H 0.5-1.3 mg/dL Glomerular Filtration Rate Calc 11 >90 mL/min Random Glucose 249 #H 70-105 mg/dL Total Calcium 9.0 8.5-10.1 mg/dL Test 06/03/24 08:20 06/03/24 05:10 Range/Units Cortisol AM Sample 5.8 L 6.2-19.4 ug/dL Total Bilirubin 0.2 0.2-1.0 mg/dL Aspartate Amino Transf (AST/SGOT) 24 10-37 U/L Alanine Aminotransferase (ALT/SGPT) < 6 L 12-78 U/L Alkaline Phosphatase 96 50-136 U/L Total Protein 5.9 L 6.0-8.3 g/dL Albumin 1.8 L 3.5-5.0 g/dL ASSESSMENT: Sternotomy abscess, s/p debridement on 06/01/2024. CAD with history of coronary artery bypass grafting. Leukocytosis. End-stage renal disease, on peritoneal dialysis. Anemia. Hypokalemia. Hypertension. Debility. PLAN: Discontinue cefepime IV. Start Zosyn IV every 12 hours. Continue Vancomycin per pharmacy protocol. Obtain sputum culture. Continue wound care. Continue pain management. Continue peritoneal dialysis as recommended by jewelry appraiser. We will follow up on the culture results. We will monitor electrolytes. Patient has been referred to LTAC. This case was reviewed and discussed with my supervising physician and the above assessment and plan was formulated and agreed upon. ATTESTATION BY PHYSICIAN I have seen and examined the patient. I reviewed the documentation, medical decision making, and treatment plan as noted by the mid-level provider above. I agree with the findings and plan of care. MARTA TOBIN MD, [facility] Jun 04, 2024 20:39
--- NOTE | 2024-06-04 21:03 | PN ---
SUBJECTIVE: A 73-year-old gentleman status post debridement of the sternum and the irrigation catheters. OBJECTIVE: GENERAL: He is awake, alert, in no acute distress. CHEST: Incision is healing, approximated loosely and sternum is stable. PLAN: Continue IV antibiotics, continue irrigation catheters for several days, pending cultures. TID: [id number] RECEIPT: [id number]
[2024-06-04] MEDS: BALSAM PERU/CASTOR OIL 60 GM TUBE TP SCH (21:54)
--- NOTE | 2024-06-04 22:56 | PN ---
FOLLOWUP NOTE SUBJECTIVE: No major complaints or events reported. The patient had some episode of hypoglycemia today. OBJECTIVE: GENERAL: The patient is not in any acute distress. VITAL SIGNS: Blood pressure 120/77, respirations 18, pulse 96, temperature 98.6. LUNGS: Clear to auscultation and inspection. HEART: Normal cardiac sound. ABDOMEN: Soft, nondistended. EXTREMITIES: No edema. LABORATORY DATA: WBC count 16,200, hemoglobin 8.8, glucose of 45. Sodium 134, potassium 3.6. ASSESSMENT: * End-stage renal disease, on peritoneal dialysis. * Diabetes mellitus type 2 with nephropathy. * Hyponatremia with sodium 134. * Anemia and chronic kidney disease. * Infected surgical wound in the sternal area. PLAN: Plan is to continue wound care. Continue antimicrobials. Continue same peritoneal dialysis prescription. TID: [id number] RECEIPT: [id number]
[2024-06-05 04:06] VITALS: BP 99/63; PULSE 79; RESP 18; TEMP 98
[2024-06-05 05:08] LABS: BASOPHILS # (AUTO) 0.04 K/uL (0.00-0.20); BASOPHILS % (AUTO) 0.3 % (0.0-5.0); EOSINOPHILS # (AUTO) 0.27 K/uL (0.00-0.70); EOSINOPHILS % (AUTO) 1.9 % (0.0-8.0); HEMATOCRIT 28.1 % (42-54); IMMATURE GRANULOCYTE ABSOLUTE 0.21 K/uL (0-1); LYMPHOCYTES # (AUTO) 1.5 K/uL (1.0-4.8); LYMPHOCYTES % (AUTO) 10.8 % (21.0-51.0); MEAN CORPUSCULAR HEMOGLOBIN 28.3 pg (27.0-33.0); MEAN CORPUSCULAR HGB CONC 29.9 g/dL (32.0-36.0); MEAN CORPUSCULAR VOLUME 94.6 fL (79-99); MONOCYTES # (AUTO) 0.8 K/uL (0.1-1.0); MONOCYTES % (AUTO) 5.3 % (3.0-13.0); NEUTROPHILS # (AUTO) 11.4 K/uL (1.8-7.7); NEUTROPHILS % (AUTO) 80.2 % (40.0-77.0); PLATELET COUNT (AUTO) 315 K/uL (130-400); RED BLOOD CELL COUNT(AUTO) 2.97 MIL/uL (4.50-6.20); RED CELL DISTRIBUTION WIDTH 14.6 % (11.0-15.5); WHITE BLOOD COUNT (AUTO) 14.2 K/uL (4.8-10.8)
[2024-06-05 05:20] LABS: CARBON DIOXIDE 25 mmol/L (21-32); CHLORIDE 99 mmol/L (101-111); CREATININE 5.6 mg/dL (0.5-1.3); GLOMERULAR FILTR. RATE CALC 10 mL/min (>90); GLUCOSE,RANDOM 208 mg/dL (70-105); SODIUM SERUM 134 mmol/L (136-145); UREA NITROGEN, BLOOD 41 mg/dL (7-18); VANCOMYCIN LEVEL 22.2 mcg/mL (20.0-30.0)
[2024-06-05 05:33] LABS: ALBUMIN 1.5 g/dL (3.5-5.0); ASPARTATE AMINOTRANSFERASE 16 U/L (10-37); BILIRUBIN,TOTAL 0.3 mg/dL (0.2-1.0); TOTAL PROTEIN, SERUM 5.9 g/dL (6.0-8.3)
--- NOTE | 2024-06-05 05:38 | NUR ---
CALL MADE TO [facility]. REPORTED NO BM SINCE 05/31. BOWEL SOUNDS PRESENT TO ALL 4 QUADRANTS. NO NAUSEA, NO EMESIS. NO COMPLAINTS OF ABDOMINAL PAIN. SPOKE TO DEACON MOREL CUTTING PRESSMAN. ORDERED DULCOLAX 10MG SUPPOSITORY X1.
[2024-06-05 05:43] LABS: ALANINE AMINOTRANSFERASE < 6 U/L (12-78)
[2024-06-05] MEDS: BisaCODYL 10 MG SUPP.RECT RC ONE (06:32)
--- NOTE | 2024-06-05 07:00 | NUR ---
HELD ON GIVING REGULAR INSULIN DUE TO HYPOGLYCEMIC EPISODES YESTERDAY. WILL EVALUATE PATIENT'S ORAL INTAKE WITH BREAKFAST MEAL.
[2024-06-05 07:31] VITALS: O2SAT 98
[2024-06-05 07:52] VITALS: BP 118/64; PULSE 75; RESP 19; TEMP 98.1
--- NOTE | 2024-06-05 10:41 | HMCIMG ---
Exam Type: CHEST 1VW Clinical Information: pneumonia Comparison: None Findings: There is cardiomegaly. There is prominence of the vascular markings consistent with pulmonary venous congestion. IMPRESSION: Findings consistent with pulmonary venous congestion.
[2024-06-05 11:31] VITALS: BP 137/72; PULSE 72; RESP 19; TEMP 98.3
--- NOTE | 2024-06-05 11:34 | NUR ---
1000: ATE 50% BREAKFAST MEAL. TOLERATED WELL. GIVEN SCHEDULED MEDS. 1125: REPORTED OFF TO CHRISTIN DIRECTOR OF MEDICAL EDUCATION.
--- NOTE | 2024-06-05 13:22 | PN ---
[facility] PROGRESS NOTE Date Patient Seen: Jun 05, 2024 Time of Visit: 13:21 Supervising Physician: Xavier Man MD Primary Care Physician: Dr. Wright Outpatient Specialists: [ ] Inpatient Consults: CTVS, Nephrology, ID PROBLEM LIST: Metabolic encephalopathy POA, resolved Infected sternotomy wound/chest wall cellulitis POA s/p debridement 06/01/24 Sternal seroma Coronary artery disease s/p CABG on 03/2023 Hypertension Diabetes mellitus with hyperglycemia and nephropathy End Stage Renal Disease on peritoneal dialysis Bilateral pneumonia left greater than right bacterial pneumonia Hypokalemia Functional quadriplegic Anemia 2/2 chronic kidney disease Recurrent hospitalization due to multiple complications after surgical procedure Allergy to penicillin tolerating cefepime INTERVAL HISTORY: Pt is awake alert and oriented x3. He has been working with PT. No major overnight events per RN. He has been performing his regular peritoneal Dialysis per significant other. The pt is pending LTAC admission [facility]. Per CV surgeon pt to continue with irrigation for several days,Sternum abscess culture w/ no growth. otherwise labs unremarkable. REVIEW OF SYSTEMS: General: Yes for GBW Neurological: No fainting episodes or seizures. HEENT: No nasal congestion or nasal secretion. Respiratory: No cough, shortness of breath, or wheezing Cardiac: No chest pain or palpitations. Gastrointestinal: No vomiting or diarrhea. Genitourinary: No dysuria hematuria. Skin: No rashes or lesions. Hematological: No bruises or bleeding. Musculoskeletal: No joint pains or arthralgias. Psychiatric: No depression or panic attacks. PHYSICAL EXAM: GENERAL: Alert, weak, awake oriented x 3 HEENT: EOMI, Sclera non icteric, moist mucosa NECK: Supple, no JVD, trachea midline LUNGS: Diminished breath sounds bilaterally. No wheezes. BELKYS the chest wall. Betadine with saline irrigation to sternal wound HEART: Regular rate and rhythm. Normal S1 and S2, without murmurs ABD: Abdomen soft, nontender. Bowel sounds present EXT: No clubbing cyanosis or edema Skin: Sternotomy site erythema and purulent drainage. NEURO: Alert and oriented to person, follows commands . Vital Signs (last 8hr) Date Time Temp Pulse Resp B/P (MAP) Pulse Ox O2 Delivery O2 Flow Rate FiO2 06/05/24 11:31 98.2 72 19 137/72 99 Room Air 06/05/24 07:52 98.1 75 19 118/64 98 Room Air 06/05/24 07:31 98 Room Air* 0 21 LABS: Hematology Labs: Test 06/05/24 04:51 Range/Units White Blood Count 14.2 H 4.8-10.8 K/uL Red Blood Count 2.97 L 4.50-6.20 MIL/uL Hemoglobin 8.4 L 14.0-18.0 g/dL Hematocrit 28.1 L 42-54 % Mean Corpuscular Volume 94.6 79-99 fL Mean Corpuscular Hemoglobin 28.3 27.0-33.0 pg Mean Corpuscular Hemoglobin Concent 29.9 L 32.0-36.0 g/dL Red Cell Distribution Width 14.6 11.0-15.5 % Platelet Count 315 130-400 K/uL Mean Platelet Volume 9.4 7.5-10.5 fL Immature Granulocyte % (Auto) 1.5 H 0-1 % Neutrophils (%) (Auto) 80.2 H 40.0-77.0 % Lymphocytes (%) (Auto) 10.8 L 21.0-51.0 % Monocytes (%) (Auto) 5.3 3.0-13.0 % Eosinophils (%) (Auto) 1.9 0.0-8.0 % Basophils (%) (Auto) 0.3 0.0-5.0 % Neutrophils # (Auto) 11.4 H 1.8-7.7 K/uL Lymphocytes # (Auto) 1.5 1.0-4.8 K/uL Monocytes # (Auto) 0.8 0.1-1.0 K/uL Eosinophils # (Auto) 0.27 0.00-0.70 K/uL Basophils # (Auto) 0.04 0.00-0.20 K/uL Absolute Immature Granulocyte (auto 0.21 0-1 K/uL Nucleated Red Blood Cells 0.0 0.0-0.19 % Chemistry Labs: Test 06/05/24 10:55 06/05/24 04:51 06/04/24 15:36 Range/Units Whole Blood Glucose 189 H 70-110 MG/DL Sodium Level 134 L 136-145 mmol/L Potassium Level 4.0 3.5-5.1 mmol/L Chloride Level 99 L 101-111 mmol/L Carbon Dioxide Level 25 21-32 mmol/L Blood Urea Nitrogen 41 H 7-18 mg/dL Creatinine 5.6 H 0.5-1.3 mg/dL Glomerular Filtration Rate Calc 10 >90 mL/min Random Glucose 208 H 70-105 mg/dL Total Calcium 8.8 8.5-10.1 mg/dL Total Bilirubin 0.3 0.2-1.0 mg/dL Aspartate Amino Transf (AST/SGOT) 16 10-37 U/L Alanine Aminotransferase (ALT/SGPT) < 6 L 12-78 U/L Alkaline Phosphatase 112 50-136 U/L Total Protein 5.9 L 6.0-8.3 g/dL Albumin 1.5 L 3.5-5.0 g/dL Bedside Glucose Comment Notified Nurse DIAGNOSTICS / RADIOLOGY RESULTS: [ ] Signed PATIENT: HI CHAMPAGNE MR#: [id number] : 1950 SEX: M AGE: 73 LOCATION: 2DH ORDER 2300 STATUS: ADM IN REPORT#: [id number] SERVICE 0600 REASON: pneumonia ORDERING PHYSICIAN: EDGAR BAEZ PROCEDURE: CXR1VW - CHEST 1VW Exam Type: CHEST 1VW Clinical Information: pneumonia Comparison: None Findings: There is cardiomegaly. There is prominence of the vascular markings consistent with pulmonary venous congestion. IMPRESSION: Findings consistent with pulmonary venous congestion. DICTATED BY: RACHEL CRABTREE MD DATE: 06/05/24 1037 ELECTRONICALLY SIGNED BY: RACHEL CRABTREE MD DATE: 06/05/24 1041 PLAN Follow CV suregon recommendations follow nephrology recommendations Antibiotics per ID Monitor BELKYS drain Follow nephrology recommendation currently on peritoneal dialysis q.h.s.. Pending LTAC placement per case management NEURO: Minimize central acting medications as possible. Maintain fall precautions, adequate lighting during the day PULMONARY: Supplemental 02 as needed. Maintain aspiration precautions at all times Maintain o2 sats above 92% CARDIOVASCULAR: Follow hemodynamics. Vital signs per facility protocol cardiac monitoring GI & NUTRITION: Continue with nutritional support. Continue stool softeners and laxatives as needed. renal diet KIDNEYS & ELECTROLYTES: Strict monitoring of intake, output and overall fluid balance. Avoid nephrotoxic medications to the extent possible. Medications to be dosed according to renal function. Monitor electrolytes and replace as needed Peritoneal Dialysis at HS per neprology recs. ENDOCRINE: Maintain blood glucose between 100-180 at all times. Hypoglycemia protocol in place INFECTIOUS DISEASE: Trend temperature, WBC and procalcitonin level Follow cultures, deescalate antibiotics as soon as possible. Panculture if new onset fever Continue abx per ID ONCOLOGY/HEMATOLOGY/COAGULATION: Monitor for s/s of bleeding Monitor hemoglobin, coagulation studies as needed SKIN: Pressure ulcer prevention per facility protocol Specialty mattress ORTHO/REHAB: Continue PT/OT Prophylaxis: Continue GI and DVT prophylaxis Code Status: Full Resuscitation Disposition: TBD Other: I personally spent 40 minutes of critical care time in treatment of this patient. This includes patient management, time at bedside, time reviewing tests, labs, appropriate images and studies, documentation, and patient care coordination. This time excludes separately billable procedures. EDGAR BAEZ [facility] Jun 05, 2024 13:22
--- NOTE | 2024-06-05 15:06 | PN ---
PROGRESS NOTE Date of Service: Jun 05, 2024 Time of Service: 15:03 SUBJECTIVE: No new concerns, no acute events reported in the last 24hours.Tolerating PD treatments. Family at bedside. Patient concerned with date of transfer due to PD supplies at the moment. REVIEW OF SYSTEMS CONSTITUTIONAL: Denies fever, chills, or fatigue. HEAD/FACE: No signs of trauma. EENT: Denies eye pain, blurred vision, double vision, or light sensitivity. RESPIRATORY: Denies shortness of breath, cough, wheezing CARDIOVASCULAR: Denies chest pain, palpitation, syncope GASTROINTESTINAL/ABDOMINAL: Denies abdominal pain, constipation, diarrhea, nausea or vomiting GENITOURINARY: Denies dysuria or hematuria. MUSCULOSKELETAL: Denies joint pain, tenderness, or trauma. INTEGUMENTARY: Denies rash or itchiness NEUROLOGICAL/PSYCH: Denies anxiety, depression, heat or cold intolerance. PHYSICAL EXAM EYES: Anicteric. Pupils equal and reactive. HENT: No oral thrush seen, moist Oral mucosa NECK: Supple, no JVD or thyromegaly. LUNGS: Good air entry. No rales, no rhonchi. CARDIOVASCULAR: S1, S2 regular. No murmur heard. ABDOMEN: Soft, non tender, bowel sounds present, no organomegaly CENTRAL NERVOUS SYSTEM: Awake, alert, oriented x 3. No focal deficits. SKIN: No rashes, no swelling. LYMPHATICS: No peripheral lymphadenopathy MUSCULOSKELETAL: No joint swelling, erythema or tenderness. EXTREMITIES: No cyanosis or clubbing BACK: No deformity, no pressure ulcer. GENITOURINARY: No dysuria or hematuria Vital Signs (last 8hr) Date Time Temp Pulse Resp B/P (MAP) Pulse Ox O2 Delivery O2 Flow Rate FiO2 06/05/24 11:31 98.2 72 19 137/72 99 Room Air 06/05/24 07:52 98.1 75 19 118/64 98 Room Air 06/05/24 07:31 98 Room Air* 0 21 LABS: Laboratory: Test 06/05/24 10:55 06/05/24 04:51 06/04/24 15:36 06/04/24 13:38 Range/Units Whole Blood Glucose 189 H 70-110 MG/DL White Blood Count 14.2 H 4.8-10.8 K/uL Red Blood Count 2.97 L 4.50-6.20 MIL/uL Hemoglobin 8.4 L 14.0-18.0 g/dL Hematocrit 28.1 L 42-54 % Mean Corpuscular Volume 94.6 79-99 fL Mean Corpuscular Hemoglobin 28.3 27.0-33.0 pg Mean Corpuscular Hemoglobin Concent 29.9 L 32.0-36.0 g/dL Red Cell Distribution Width 14.6 11.0-15.5 % Platelet Count 315 130-400 K/uL Mean Platelet Volume 9.4 7.5-10.5 fL Immature Granulocyte % (Auto) 1.5 H 0-1 % Neutrophils (%) (Auto) 80.2 H 40.0-77.0 % Lymphocytes (%) (Auto) 10.8 L 21.0-51.0 % Monocytes (%) (Auto) 5.3 3.0-13.0 % Eosinophils (%) (Auto) 1.9 0.0-8.0 % Basophils (%) (Auto) 0.3 0.0-5.0 % Neutrophils # (Auto) 11.4 H 1.8-7.7 K/uL Lymphocytes # (Auto) 1.5 1.0-4.8 K/uL Monocytes # (Auto) 0.8 0.1-1.0 K/uL Eosinophils # (Auto) 0.27 0.00-0.70 K/uL Basophils # (Auto) 0.04 0.00-0.20 K/uL Absolute Immature Granulocyte (auto 0.21 0-1 K/uL Nucleated Red Blood Cells 0.0 0.0-0.19 % Sodium Level 134 L 136-145 mmol/L Potassium Level 4.0 3.5-5.1 mmol/L Chloride Level 99 L 101-111 mmol/L Carbon Dioxide Level 25 21-32 mmol/L Blood Urea Nitrogen 41 H 7-18 mg/dL Creatinine 5.6 H 0.5-1.3 mg/dL Glomerular Filtration Rate Calc 10 >90 mL/min Random Glucose 208 H 70-105 mg/dL Total Calcium 8.8 8.5-10.1 mg/dL Total Bilirubin 0.3 0.2-1.0 mg/dL Aspartate Amino Transf (AST/SGOT) 16 10-37 U/L Alanine Aminotransferase (ALT/SGPT) < 6 L 12-78 U/L Alkaline Phosphatase 112 50-136 U/L Total Protein 5.9 L 6.0-8.3 g/dL Albumin 1.5 L 3.5-5.0 g/dL Vancomycin Level 22.2 20.0-30.0 mcg/mL Bedside Glucose Comment Notified Nurse Blood Gas Specimen Type Arterial Arterial Blood pH 7.402 7.350-7.450 Arterial Blood Partial Pressure CO2 38 35-48 mmHg Arterial Blood Partial Pressure O2 75.2 L 83.0-108.0 mmHg Arterial Blood HCO3 22.8 21.0-28.0 mmol/L Arterial Blood Oxygen Saturation 93.4 L 94.0-98.0 % Arterial Blood Base Excess -1.7 -2.0-3.0 mmol/L Hemoglobin (Blood Gas) 9.1 L 13.5-17.5 g/dL Sodium (Blood Gas) 132 L 136-145 MMOL/L Bedside Potassium (Blood Gas) 4.0 3.4-4.5 MMOL/L Bedside Chloride (Blood Gas) 98 98-107 MMOL/L Bedside Glucose (Blood Gas) 96 H 65-95 MG/DL Bedside Ionized Calcium (Blood Gas) 1.15 1.15-1.33 MMOL/L Bedside Lactic Acid (Blood Gas) 0.85 H 0.36-0.75 MMOL/L Blood Gas Temperature 37.0 35.5-37.0 CELSIUS Blood Gas Vent Mode RA ROOM AIR FiO2 21.0 % Blood Gas Specimen Comment LR NOEL DIAGNOSTICS / RADIOLOGY: CT CHEST W/O CONTRAST HISTORY: Recurrent sternotomy infection COMPARISON: 10/24/2024 TECHNIQUE: Multiple sequential axial images of the chest were obtained from the thoracic inlet through upper abdomen. Patient was not given contrast through intravenous route. FINDINGS: Tiny bilateral pleural effusions are seen. Left lower lung subsegmental atelectasis changes are seen suggestive calcification. Poststernotomy changes are seen. Coronary arterial calcifications are seen. No drainable abscess collection. Mild left lung pulmonary infiltrates are seen. There is dextroscoliosis. There is no evidence of pneumothorax. There are normal size mediastinal and hilar lymph nodes. The heart is not enlarged. Degenerative changes of the thoracolumbar spine are present. There is no evidence of adrenal nodule. There is tiny ascites. IMPRESSION: 1. Tiny bilateral pleural effusions with left lower lung subsegmental atelectasis changes. No drainable abscess collection is seen. CT was performed with one or more following dose reduction techniques: automated exposure control, adjustment of the mA and kv according to patient's size, or use of a iterative reconstruction technique. ASSESSMENT: End-stage renal disease. Diabetes mellitus type 2 with nephropathy. Hypertension with renal manifestation. Anemia and chronic kidney disease. Hypokalemia. Hyponatremia Severe protein-calorie malnutrition with an albumin of 1.7. Infected surgical wound in the sternal area. PLAN: To continue present plan of care. Monitor Nutritional status We will continue with peritoneal dialysis Monitor patients BP Monitor Electrolytes replenish as per protocol Continue antimicrobials patient pending LTAC admission KELVIN Chavez AGRAE Jun 05, 2024 15:06
[2024-06-05 17:17] VITALS: BP 153/91; PULSE 77; RESP 18; TEMP 98.3
[2024-06-05 20:52] VITALS: BP 156/77; PULSE 85; RESP 18; TEMP 98.2
--- NOTE | 2024-06-05 21:42 | PN ---
INFECTIOUS DISEASE FOLLOWUP NOTE DATE OF SERVICE: 06/05/2024 SUBJECTIVE: The patient is seen. No fever, no chills. No bleeding tendency. No chest pain. No palpitation or orthopnea. ____. No depression. No suicidal ideation. The patient ____ dialysis. PHYSICAL EXAMINATION: VITAL SIGNS: Temperature 98.5. EYES: No icterus, no conjunctival hemorrhage. HENT: No oral lesion seen. Moist oral mucosa. NECK: Supple, no JVD or thyromegaly. LUNGS: Good air entry. No rales, no rhonchi. CHEST: Sternal incision looks clean and dry. BELKYS drain in place. CARDIOVASCULAR: S1, S2 regular. No murmur heard. ABDOMEN: Full, soft. Bowel sound is present. Peritoneal dialysis catheter is established. CENTRAL NERVOUS SYSTEM: Awake, alert, bedbound debility. SKIN: No rashes, no itchiness. LYMPHATIC: No peripheral lymphadenopathy. MUSCULOSKELETAL: No joint swelling, erythema or tenderness. ASSESSMENT: A 73-year-old male with multiple problems, which include: * Sternal wound infection, status post debridement. * End-stage renal disease, on dialysis. * Hypertension. * Diabetes mellitus. * Coronary artery disease, status post recent coronary artery bypass grafting. PLAN: * Continue cefepime. * Continue vancomycin. * Continue pain management. * Continue wound care. * Continue dialysis. * Monitor electrolytes. * The patient will be followed up closely. TID: [id number] RECEIPT: [id number]
--- NOTE | 2024-06-05 21:45 | NUR ---
EMS ARRIVED TO [facility] PATIENT. PATIENT A/OX3. NO DISTRESS NOTED AT TIME OF DISCHARGE. BETADINE TO STERNUM RUNNING AT 10 ML/HR CONNECTED TO DIAL FRANCK. D10+NACL@ 25ML/HR CONNECTED TO DIAL FRANCK RUNNING THROUGH MIDLINE. PATIENT'S GATHERED ALL BELONGINGS AND WERE TAKEN WITH HER UPON DISCHARGE. TERMINAL MAKEUP OPERATOR REMOVED PRIOR TO DEPARTURE. PATIENT SENT TO [facility].
== END 2024-06-05 21:45 | DRG 856 ==
LOC: 2DH 10:30
PROVIDERS: ADMIT Internal Medicine Critical Care Medicine; ATTEND Internal Medicine Critical Care Medicine
PROC: 0PB00ZZ Excision of Sternum, Open Approach (ICD-10-PCS; principal; 2024-06-02)
DX: T81.41XA Infection following a procedure, superficial incisional surgical site, initial encounter (principal); E43 Unspecified severe protein-calorie malnutrition; G93.41 Metabolic encephalopathy; N18.6 End stage renal disease; J15.9 Unspecified bacterial pneumonia; R53.2 Functional quadriplegia; L03.313 Cellulitis of chest wall; I12.0 Hypertensive chronic kidney disease with stage 5 chronic kidney disease or end stage renal disease; E87.1 Hypo-osmolality and hyponatremia; I25.10 Atherosclerotic heart disease of native coronary artery without angina pectoris; E87.6 Hypokalemia; E11.649 Type 2 diabetes mellitus with hypoglycemia without coma; E87.70 Fluid overload, unspecified; E11.22 Type 2 diabetes mellitus with diabetic chronic kidney disease; Y83.9 Surgical procedure, unspecified as the cause of abnormal reaction of the patient, or of later complication, without mention of misadventure at the time of the procedure; E78.5 Hyperlipidemia, unspecified; E11.65 Type 2 diabetes mellitus with hyperglycemia; D63.1 Anemia in chronic kidney disease; Z95.1 Presence of aortocoronary bypass graft; Z88.0 Allergy status to penicillin; Z83.3 Family history of diabetes mellitus; Z79.899 Other long term (current) drug therapy; Z99.2 Dependence on renal dialysis; Z88.8 Allergy status to other drugs, medicaments and biological substances; Y92.89 Other specified places as the place of occurrence of the external cause
CPT/HCPCS: 36415; 36600; 70450; 71045; 71250; 80048; 80053; 80202; 82435; 82533; 82803; 82947; 82948; 83605; 83735; 84100; 84132; 84145; 84295; 84443; 85018; 85025; 85610; 85730; 86140; 86850; 86900; 86901; 87040; 87070; 87071; 87076; 87205; 93005; 94640; A4606; G0378; J0690; J0692; J1100; J1644; J1815; J2003; J2250; J2405; J2543; J2704; J2710; J3010; J3475; J3490; J7070; J7131; P9045; A4216; A4222; A4223; A4649; A6213; A6214; C1713; J3370